=== PATIENT | female | born 1960 | race Caucasian/White ===

== ENCOUNTER → 2017-02-07 | Outpatient (CLI) | payer BC ==
[~2017-02-07] MED LIST: ADAL40KI SQ; CIPR1TAB10 PO; CYAN10002 IM; CYAN10004 IM; HYDR-3714 PO; HYDR-3983 PO; HYDR-4380 PO; HYDR-5688 PO; LANS30TA3 PO; LEVO1TAB33 PO; LIDO1PAD2 TD; LIDO5DIS10 TD; PHEN-876 PO; PRED10TA PO; TOFA1TAB PO
== END | disposition home or self-care (01) ==
LOC: C.LABPVFM 14:39
PROVIDERS: ATTEND Family Medicine
DX: R10.2 Pelvic and perineal pain (principal)

== ENCOUNTER 2017-02-08 09:42 | Emergency (ER) | payer BC ==
[~2017-02-08] VITALS: Ht 162.6 cm; Wt 68.9 kg
[~2017-02-08 09:42] MED LIST changes: -CIPR1TAB10 PO; -CYAN10004 IM; -HYDR-3714 PO; -HYDR-4380 PO; -HYDR-5688 PO; -LEVO1TAB33 PO; -LIDO1PAD2 TD; -PHEN-876 PO; -PRED10TA PO; -TOFA1TAB PO
[2017-02-08 09:46] VITALS: TEMP 36.6; Ht 162.6 cm; Wt 68.9 kg
[2017-02-08] MEDS ORDERED: TOFA1TAB PO (10:50)
[2017-02-08] MEDS ORDERED: PRED10TA PO (10:50)
[2017-02-08] MEDS ORDERED: LIDO1PAD2 TD (10:50)
[2017-02-08] MEDS ORDERED: LEVO1TAB33 PO (10:50)
[2017-02-08] MEDS ORDERED: HYDR-4380 PO (10:50)
[2017-02-08] MEDS ORDERED: CYAN10004 IM (10:52)
[2017-02-08] MEDS ORDERED: MoRPHine SULFATE 4 MG/ML 1 ML CARP\\VIAL IV STA (11:11)
[2017-02-08] MEDS ORDERED: SODIUM CHLORIDE 0.9% 1000ML 1,000 ML IV STA (11:11)
[2017-02-08] MEDS ORDERED: ONDANSETRON INJ 2 MG/ML 2 ML VIAL IV STA (11:11)
[2017-02-08 11:20] LABS: BASO % 0.5 %; BASO ABS # 0.03 K/uL (0-0.2); COMPLETE YES; EOS % 2.5 %; HEMATOCRIT 42.1 % (37-47); LYMPH % 32.2 %; LYMPH ABS # 1.83 K/uL (1.2-3.4); MEAN CELL VOLUME 87.7 fL (80-100); MEAN CORPUSCULAR HEMOGLOBIN 29.6 pg (25-34); MEAN CORPUSCULAR HGB CONC 33.7 g/dl (32-36); MEAN PLATELET VOLUME 11.8 fL (7.4-10.4); NEUT % 52.8 %; PLATELET COUNT 240 K/uL (130-400); WHITE BLOOD COUNT 5.69 K/uL (4.8-10.8)
[2017-02-08 11:26] LABS: URINE APPEARANCE CLEAR (CLEAR); URINE BILIRUBIN NEG (NEG); URINE COLOR YELLOW; URINE NITRITE NEG (NEG); URINE SPECIFIC GRAVITY 1.021 (1.000-1.030); UROBILINOGEN NEG (NEG); ZZUR CULT IF INDIC CLEAN CATCH NO
[2017-02-08 11:28] LABS: BUN/CREATININE RATIO 16.6 (10-20); CALCIUM 9.1 mg/dl (8.5-10.1); CREATININE 0.7 mg/dl (0.60-1.20); POTASSIUM 3.7 mmol/L (3.5-5.1)
[2017-02-08 11:28] LABS: MANUAL MICROSCOPIC REQUIRED? NO; REVIEW REQ? NO
[2017-02-08] MEDS ORDERED: OPTIRAY 320 IV PRN (11:30)
[2017-02-08 11:31] LABS: ALB/GLOB RATIO 0.7 (0.9-2)
--- NOTE | 2017-02-08 12:03 | EMERGENCY ROOM VISIT NOTE ---
History First contact with patient: 10:58 Chief Complaint: ABDOMINAL PAIN Stated Complaint: ABDOMINAL PAIN, BACK PAIN Nursing Triage Summary: pt has hx of gastic bipass several years ago, pt has chronic constant diarrhea which is normal for pt pt has had lower abd pain for greater than week, pain radiates into right flank no hx kidney stones pt saw pcp yesterday urine dipped positive for leukocytes pt started on Levaquin pt was instructed to go to ER yesterday for r/o appey, "wanted to see if it gets worse" today pain worse, pt unable to sit up diarrhea, nausea History of Present Illness The patient is a 56 year old female who presents to the Emergency Room with complaints of abdominal pain for the past one week. The patient reports that last week she had minimal discomfort which has progressively worsened over the past 3 days. The patient reports that the pain is in the right lower abdomen and around the umbilicus. She was seen at her primary care provider's office yesterday and states that she was started on Levaquin for a possible urinary tract infection. She does report that they suggested she come to the ER to rule out appendicitis at that time. The patient reports that she did vomit one time 3 days ago and has been nauseous after eating. Her bowel movements have been normal. She has a history of gastric bypass 9 years ago and had surgery one year ago to repair an ulcer. The patient also reports a history of a total hysterectomy, anemia and rheumatoid arthritis. She denies any urinary symptoms , chest pain, shortness of breath, vaginal bleeding, melena or hematochezia. She denies any fevers or chills. Review of Systems A complete 10-point Review of Systems was discussed with the patient, with pertinent positives and negatives listed in the History of Present Illness. All remaining Review of Systems questions can be considered negative unless otherwise specified. Past Medical/Surgical History Medical Problems: (1) Anemia (2) Anemia (3) section (4) Dizziness (5) Dizziness (6) Gastric bypass (7) GI bleed (8) Hematemesis (9) Hypothyroidism (10) Hysterectomy (11) Rheumatoid arthritis (12) Syncope and collapse (13) Tubal ligation (14) Upper GI bleed Social History Smoking Status: Never Smoker Alcohol Use: none Drug Use: none Marital Status: Occupation Status: employed Current/Historical Medications Scheduled Cyanocobalamin (Vitamin B-12 1000 Mcg), 1,000 MCG IM Q3 MONTHS Hydrocodone-Acetaminophen (Hydrocodone/Acetaminophen), 1 TAB PO Q8 Lansoprazole (Prevacid Solutab), 30 MG PO DAILY Levofloxacin (Levaquin), 1 TAB PO DAILY Prednisone (Prednisone), 1 TAB PO DAILY Tofacitinib Citrate (Xeljanz), 1 TAB PO BID Scheduled PRN Hydrocodone/Acetaminophen 5MG/325MG (Otho 5MG/325MG), 1-2 TABLET PO Q4H PRN for Pain Lidocaine (Lidocaine), 1 PATCH TD for Pain Allergies Coded Allergies: Oxycodone (Verified Adverse Reaction, Mild, "CRAWLING SKIN", 02/08/17) DID NOT LIKE HOW SHE FELT Physical Exam Vital Signs Date Time Temp Pulse Resp B/P Pulse Ox O2 Delivery O2 Flow Rate FiO2 02/08/17 13:20 76 18 126/84 98 02/08/17 09:46 36.6 74 18 132/91 100 Room Air Physical Exam VITALS: Vitals are noted on the nurse's note and reviewed by myself. Vital signs stable. GENERAL: This is a 56-year-old female, in no acute distress, nondiaphoretic, well-developed well-nourished. SKIN: Capillary reflex less than 2 seconds. HEENT: Normocephalic. PERRLA. EOMI. Nares patent. Mucous membranes moist. Neck is supple without nuchal rigidity. HEART: Regular rate and rhythm without murmurs gallops or rubs. LUNGS: Clear to auscultation bilaterally without wheezes, rales or rhonchi. ABDOMEN: Positive bowel sounds x 4. Soft, moderate tenderness to palpation over the right lower quadrant and suprapubic region. No guarding or rebound tenderness. NEURO: Patient was alert and oriented to person place and time. Medical Decision & Procedures ER Provider Diagnostic Interpretation: CT ABD/PELVIS IV CONTRAST ONLY CLINICAL HISTORY: periumbilical pain, vomiting, hx gastric bypass COMPARISON STUDY: 08/30/2011 TECHNIQUE: Following the IV administration of 93 mL of Optiray-320, CT scan of the abdomen and pelvis was performed from the lung bases to the proximal femurs. Images are reviewed in the axial, sagittal, and coronal planes. IV contrast was administered without complication. CT DOSE: 658.22 mGycm FINDINGS: Lower chest: Is a 12 mm right middle lobe lung cyst. There are bibasal atelectatic changes. Liver: The contrast-enhanced liver is normal in size, contour, and attenuation. There is no intrahepatic biliary ductal dilatation. The hepatic veins and portal veins are patent. Gallbladder: There is mild gallbladder distention. No calculi are visualized. There is no ductal dilatation. The portal veins are patent. Spleen: Normal in size and attenuation. Pancreas: There is persistent mild pancreatic ductal dilatation (3.8 mm) Adrenal glands: Unremarkable. Kidneys: There is a nonobstructing 4 mm lower pole right renal calculus. No solid renal masses are visualized. Bowel: There are postsurgical changes of a prior gastric bypass. There are no transition zones indicate bowel obstruction. The appendix is felt to be normal. There is mild fecal retention. There is no evidence of acute diverticulitis. Peritoneum: There is no intraperitoneal free air or abdominal ascites. Vasculature: The abdominal aorta is normal in course and caliber. Adenopathy: None. Pelvic viscera: The patient appears status post a prior hysterectomy. Skeletal structures: 1. 4 mm nonobstructing lower pole right renal calculus 2. Postsurgical changes of a prior gastric bypass 3. No evidence of bowel obstruction. No evidence of free air 4. Normal appendix 5. Mild fecal retention 6. Mild pancreatic ductal dilatation. IMPRESSION: Normal Study Laboratory Results 02/08/17 10:00 Red Blood Count 4.80, Mean Corpuscular Volume 87.7, Mean Corpuscular Hemoglobin 29.6, Mean Corpuscular Hemoglobin Concent 33.7, Mean Platelet Volume 11.8, Neutrophils (%) (Auto) 52.8, Lymphocytes (%) (Auto) 32.2, Monocytes (%) (Auto) 12.0, Eosinophils (%) (Auto) 2.5, Basophils (%) (Auto) 0.5, Neutrophils # (Auto ) 3.01, Lymphocytes # (Auto) 1.83, Monocytes # (Auto) 0.68, Eosinophils # (Auto ) 0.14, Basophils # (Auto) 0.03 02/08/17 10:00 Test 02/08/17 00:00 02/08/17 10:00 Urine Color YELLOW Urine Appearance CLEAR (CLEAR) Urine pH 5.0 (4.5-7.5) Urine Specific [place] 1.021 (1.000-1.030) Urine Protein NEG (NEG) Urine Glucose (UA) NEG (NEG) Urine Ketones NEG (NEG) Urine Occult Blood NEG (NEG) Urine Nitrite NEG (NEG) Urine Bilirubin NEG (NEG) Urine Urobilinogen NEG (NEG) Urine Leukocyte Esterase NEG (NEG) White Blood Count 5.69 K/uL (4.8-10.8) Red Blood Count 4.80 M/uL (4.2-5.4) Hemoglobin 14.2 g/dL (12.0-16.0) Hematocrit 42.1 % (37-47) Mean Corpuscular Volume 87.7 fL (80-100) Mean Corpuscular Hemoglobin 29.6 pg (25-34) Mean Corpuscular Hemoglobin Concent 33.7 g/dl (32-36) Platelet Count 240 K/uL (130-400) Mean Platelet Volume 11.8 fL (7.4-10.4) Neutrophils (%) (Auto) 52.8 % Lymphocytes (%) (Auto) 32.2 % Monocytes (%) (Auto) 12.0 % Eosinophils (%) (Auto) 2.5 % Basophils (%) (Auto) 0.5 % Neutrophils # (Auto) 3.01 K/uL (1.4-6.5) Lymphocytes # (Auto) 1.83 K/uL (1.2-3.4) Monocytes # (Auto) 0.68 K/uL (0.11-0.59) Eosinophils # (Auto) 0.14 K/uL (0-0.5) Basophils # (Auto) 0.03 K/uL (0-0.2) RDW Standard Deviation 44.3 fL (36.4-46.3) RDW Coefficient of Variation 13.7 % (11.5-14.5) Immature Granulocyte % (Auto) 0.0 % Immature Granulocyte # (Auto) 0.00 K/uL (0.00-0.02) Anion Gap 7.0 mmol/L (3-11) Est Creatinine Clear Calc Drug Dose 87.6 ml/min Estimated GFR () 113.8 Estimated GFR (Non- 98.2 BUN/Creatinine Ratio 16.6 (10-20) Calcium Level 9.1 mg/dl (8.5-10.1) Total Bilirubin 0.4 mg/dl (0.2-1) Aspartate Amino Transf (AST/SGOT) 19 U/L (15-37) Alanine Aminotransferase (ALT/SGPT) 28 U/L (12-78) Alkaline Phosphatase 102 U/L (45-117) Total Protein 7.6 gm/dl (6.4-8.2) Albumin 3.2 gm/dl (3.4-5.0) Globulin 4.4 gm/dl (2.5-4.0) Albumin/Globulin Ratio 0.7 (0.9-2) Lipase 214 U/L (73-393) Medications Administered Medications (Trade) Dose Ordered Sig/Jorden Route Start Time Stop Time Status Last Admin Dose Admin Sodium Chloride (Nss 1000ml) 1,000 ml @ 999 mls/hr Q1H1M STAT IV 02/08/17 11:11 02/08/17 12:11 DC 02/08/17 11:11 999 MLS/HR Morphine Sulfate (MoRPHine SULFATE INJ) 4 mg NOW STAT IV 02/08/17 11:11 02/08/17 11:13 DC 02/08/17 11:24 4 MG Ondansetron HCl (Zofran Inj) 4 mg NOW STAT IV 02/08/17 11:11 02/08/17 11:13 DC 02/08/17 11:24 4 MG Medical Decision Differential diagnosis includes appendicitis, colitis, gastroenteritis, diverticulitis, pancreatitis, ovarian cyst, ovarian torsion, uterine fibroid, among others. The patient was evaluated as above. Labs were drawn and IV access was obtained. Imaging studies were performed and read by radiology as above. The patient was medicated with 4 mg morphine, 4 mg Zofran and 1 L normal saline solution. The patient was reassessed multiple times during their stay in the emergency department and remained in stable condition. The patient is a 56-year-old female who presents today complaining of mid abdominal pain. Labs revealed no leukocytosis, anemia or concerning electrolyte abnormalities. Lipase was not elevated. Urinalysis was not suggestive of infection. CT of the abdomen and pelvis was performed and showed no acute findings within the abdomen. There was note of mild fecal retention. The patient was informed that this may be contributing to her pain and I did encourage her to use MiraLAX for pain. She did request something for pain and was given a short course of Otho, but I did warn her that this could worsen her constipation. The patient was instructed to follow up with both her primary care provider and her gastric bypass surgeon. She should return here for any worsening of her current condition or new/concerning symptoms. Based on the patient's presentation, lab results, and imaging studies, I feel the patient is stable for outpatient treatment. The patient's case was reviewed with Dr. Nichole, ED attending physician, who agreed with my assessment and treatment plan. Discharge instructions were reviewed with the patient. The patient verbalized understanding of my assessment and treatment plan and was discharged home in good condition. [place] Drug Monitoring Program Search Results: patient reviewed within database Impression Primary Impression: Periumbilical abdominal pain Departure Information Dispostion Home / Self-Care Condition GOOD Prescriptions Hydrocodone/Acetaminophen 5MG/325MG (Otho 5MG/325MG) Tab 1-2 TABLET PO Q4H Y for Pain, #10 TAB For Initial Treatment Prov: Grace Reese .MICH 02/08/17 Referrals Maren Snowden C.R.N.P (PCP) Patient Instructions My [facility] Additional Instructions You have been treated in the Emergency Department for your Abdominal Pain. Laboratory results and imaging studies have ruled out any emergent causes for your abdominal pain which would warrant admission or surgery. Stop taking the Levaquin. You have been prescribed Otho to be used for pain control. This is a narcotic medication. You cannot drive or consume alcohol while on this medicine. This medicine should only be used for pain that cannot be controlled with over-the- counter pain medicines. Take MiraLAX tonight. This is an hlja-ypk-abtftfr medication which will help constipation. Take Colace while you're taking the narcotic pain medication. For pain control, you can use the following [id number] medicines (if >12 yo): - Regular strength (325mg/tab) Tylenol (acetaminophen) 2 tabs every 4-6 hours as needed. Do not exceed 12 tablets in a 24 hour period. Avoid taking more than 4 grams (4000 mg) of Tylenol per day. This includes any other sources of acetaminophen you may take on a regular basis. - Regular strength (200 mg/tab) Advil (ibuprofen) 1-2 tabs every 4-6 hours as needed. Do not exceed a dose of 3200 mg per day. Drink plenty of water and stay well hydrated. Follow-up with your primary care provider within 48 hours. You should also call your gastric bypass surgeon and schedule follow-up with them. Return to the emergency department if your symptoms persist despite treatment plan outlined above or if the following symptoms occur: Worsening pain, worsening vomiting, fevers or any other new/concerning symptoms.
--- NOTE | 2017-02-08 12:12 | DIAGNOSTIC IMAGING REPORT ---
CT ABD/PELVIS IV CONTRAST ONLY CLINICAL HISTORY: periumbilical pain, vomiting, hx gastric bypass COMPARISON STUDY: 08/30/2011 TECHNIQUE: Following the IV administration of 93 mL of Optiray-320, CT scan of the abdomen and pelvis was performed from the lung bases to the proximal femurs. Images are reviewed in the axial, sagittal, and coronal planes. IV contrast was administered without complication. CT DOSE: 658.22 mGycm FINDINGS: Lower chest: Is a 12 mm right middle lobe lung cyst. There are bibasal atelectatic changes. Liver: The contrast-enhanced liver is normal in size, contour, and attenuation. There is no intrahepatic biliary ductal dilatation. The hepatic veins and portal veins are patent. Gallbladder: There is mild gallbladder distention. No calculi are visualized. There is no ductal dilatation. The portal veins are patent. Spleen: Normal in size and attenuation. Pancreas: There is persistent mild pancreatic ductal dilatation (3.8 mm) Adrenal glands: Unremarkable. Kidneys: There is a nonobstructing 4 mm lower pole right renal calculus. No solid renal masses are visualized. Bowel: There are postsurgical changes of a prior gastric bypass. There are no transition zones indicate bowel obstruction. The appendix is felt to be normal. There is mild fecal retention. There is no evidence of acute diverticulitis. Peritoneum: There is no intraperitoneal free air or abdominal ascites. Vasculature: The abdominal aorta is normal in course and caliber. Adenopathy: None. Pelvic viscera: The patient appears status post a prior hysterectomy. Skeletal structures: 1. 4 mm nonobstructing lower pole right renal calculus 2. Postsurgical changes of a prior gastric bypass 3. No evidence of bowel obstruction. No evidence of free air 4. Normal appendix 5. Mild fecal retention 6. Mild pancreatic ductal dilatation. IMPRESSION: Normal Study Electronically signed by: Joseph Rahman M.D. 02/08/2017 12:10 PM Dictated Date/Time: 02/08/2017 12:04 PM
[2017-02-08] MEDS ORDERED: HYDR-5688 PO (13:07)
[2017-02-08 13:20] VITALS: BP 126/84; PULSE 76; O2SAT 98
== END 2017-02-08 13:22 | disposition home or self-care (01) ==
LOC: C.EDB 09:44 → C.EDC 13:22
DX: R10.33 Periumbilical pain (principal); Z98.84 Bariatric surgery status; E03.9 Hypothyroidism, unspecified

== ENCOUNTER 2017-05-11 04:32 | Emergency (ER) | payer BC ==
[~2017-05-11] VITALS: Ht 162.6 cm; Wt 70.6 kg
[~2017-05-11 04:32] MED LIST changes: -ADAL40KI SQ; -CYAN10002 IM; +CYAN10004 IM; -HYDR-3983 PO; +HYDR-4380 PO; +HYDR-5688 PO; +LEVO1TAB33 PO; +LIDO1PAD2 TD; -LIDO5DIS10 TD; +PRED10TA PO; +TOFA1TAB PO
[2017-05-11 04:39] VITALS: TEMP 36.5; Ht 162.6 cm; Wt 70.6 kg
[2017-05-11] MEDS ORDERED: ONDANSETRON INJ 2 MG/ML 2 ML VIAL IV STA (04:48)
[2017-05-11] MEDS ORDERED: MoRPHine SULFATE 4 MG/ML 1 ML CARP\\VIAL IV STA (04:48)
[2017-05-11] MEDS ORDERED: SODIUM CHLORIDE 0.9% 500ML 500 ML IV STA (04:48)
[2017-05-11] MEDS ORDERED: PHENAZOPYRIDINE HCL 200 MG TAB PO STA (04:48)
[2017-05-11] MEDS ORDERED: SODIUM CHLORIDE 0.9% 1000ML 1,000 ML IV STA (04:48)
[2017-05-11] MEDS ORDERED: CEFTRIAXONE SOD INJ 1 GM ADDVIAL IV STA (04:48)
[2017-05-11 05:26] LABS: BASO % 0.6 %; BASO ABS # 0.03 K/uL (0-0.2); COMPLETE YES; EOS % 2.2 %; HEMATOCRIT 41.7 % (37-47); IG% 0.2 %; LYMPH % 38.7 %; LYMPH ABS # 1.98 K/uL (1.2-3.4); MEAN CELL VOLUME 86.9 fL (80-100); MEAN CORPUSCULAR HEMOGLOBIN 28.8 pg (25-34); MEAN CORPUSCULAR HGB CONC 33.1 g/dl (32-36); MEAN PLATELET VOLUME 11.6 fL (7.4-10.4); MONO % 11.4 %; NEUT % 46.9 %; PLATELET COUNT 201 K/uL (130-400); WHITE BLOOD COUNT 5.11 K/uL (4.8-10.8)
[2017-05-11] MEDS ORDERED: HYDR-3714 PO (05:41)
[2017-05-11 05:43] LABS: BUN/CREATININE RATIO 26.4 (10-20); CREATININE 0.65 mg/dl (0.60-1.20)
[2017-05-11 05:44] LABS: CALCIUM 8.5 mg/dl (8.5-10.1)
[2017-05-11 05:51] LABS: URINE BILIRUBIN NEG (NEG); URINE EPITHELIAL CELL AUTO 20-30 /lpf (0-5); URINE NITRITE NEG (NEG); URINE PH 6.5 (4.5-7.5); URINE SPECIFIC GRAVITY 1.029 (1.000-1.030); UROBILINOGEN NEG (NEG); ZZUR CULT IF INDIC CLEAN CATCH NO
[2017-05-11 05:52] LABS: MANUAL MICROSCOPIC REQUIRED? NO; REVIEW REQ? NO; URINE APPEARANCE TURBID (CLEAR); URINE COLOR RED
--- NOTE | 2017-05-11 07:08 | DIAGNOSTIC IMAGING REPORT ---
RENAL ULTRASOUND HISTORY: flank pain, ? infx COMPARISON: Abdomen and pelvis CT 02/08/2017. FINDINGS: Right kidney: 11.2 cm. No hydronephrosis. Normal corticomedullary differentiation and cortical thickness. An 8 mm stone within the interpolar region. Left kidney: 12.1 cm. No hydronephrosis. Normal corticomedullary differentiation and cortical thickness. Bladder: No bladder wall thickening. The bilateral ureteral jets were identified. Trace debris layering within the bladder. IMPRESSION: 1. Right-sided nephrolithiasis. 2. No hydronephrosis. 3. Trace debris layering within the bladder. Recommend correlation with urinalysis. Electronically signed by: Tani Corcoran M.D. 05/11/2017 7:06 AM Dictated Date/Time: 05/11/2017 7:04 AM
--- NOTE | 2017-05-11 07:11 | EMERGENCY ROOM VISIT NOTE ---
History First contact with patient: 04:46 Chief Complaint: HEMATURIA Stated Complaint: PEEING BLOOD History of Present Illness The patient is a 56 year old female who presents to the Emergency Room with complaints of urinary symptoms with suprapubic discomfort for the past 2 days. Patient saw her family care doctor was started on Cipro. Symptoms have not gotten any better. Patient denies fevers, flank pain, chest pain, dyspnea, cough, congestion. She is tolerate by mouth fluids and food. Review of Systems See HPI for pertinent positives & negatives. A total of 10 systems reviewed and were otherwise negative. Past Medical/Surgical History Medical Problems: (1) Anemia (2) Anemia (3) section (4) Dizziness (5) Dizziness (6) Gastric bypass (7) GI bleed (8) Hematemesis (9) Hypothyroidism (10) Hysterectomy (11) Rheumatoid arthritis (12) Syncope and collapse (13) Tubal ligation (14) Upper GI bleed Social History Smoking Status: Never Smoker Alcohol Use: none Drug Use: none Marital Status: Occupation Status: employed Current/Historical Medications Scheduled Cyanocobalamin (Vitamin B-12 1000 Mcg), 1,000 MCG IM Q3 MONTHS Tofacitinib Citrate (Xeljanz), 10 MG PO DAILY Scheduled PRN Hydrocodon/Acetaminophen 7.5MG/300MG (Vicodin Es (7.5MG/300MG)), 1 TAB PO QID PRN for Pain Allergies Coded Allergies: Oxycodone (Verified Adverse Reaction, Mild, "CRAWLING SKIN", 05/11/17) DID NOT LIKE HOW SHE FELT Physical Exam Vital Signs Date Time Temp Pulse Resp B/P (MAP) Pulse Ox O2 Delivery O2 Flow Rate FiO2 05/11/17 04:39 36.5 54 18 137/86 96 Room Air Physical Exam VITALS: Vitals are noted on the nurse's note and reviewed by myself. Vital signs stable. GENERAL: Pleasant female, in no acute distress, nondiaphoretic, well-developed well-nourished. SKIN: The skin was without rashes, erythema, edema, or bruising. There is no tenting of the skin. Capillary reflex less than 2 seconds. HEAD: Normocephalic atraumatic. EARS: External auditory canals clear, tympanic membranes pearly berry without erythema or effusion bilaterally. EYES: Pupils equal round and reactive to light and accommodation. Conjunctivae without injection, sclerae without icterus. Extraocular movements intact. NOSE: Patent, turbinates without inflammation or discharge. MOUTH: Mucous membranes moist. Pharynx without erythema or exudate. Uvula midline. Airway patent. Tongue does not deviate. NECK: Supple without nuchal rigidity. No lymphadenopathy. No thyromegaly. Cervical spine is nontender. No JVD. HEART: Regular rate and rhythm without murmurs gallops or rubs. LUNGS: Clear to auscultation bilaterally without wheezes, rales or rhonchi. No dullness to percussion. No retractions or accessory muscle use. ABDOMEN: Positive bowel sounds x 4. Normal tympanic percussion. Soft, minimally tender to palpation suprapubic area, no CVA tenderness, without masses or organomegaly. Holland sign negative. No guarding or rebound tenderness. MUSCULOSKELETAL: No muscle atrophy, erythema, or edema noted. NEURO: Patient was alert and oriented to person place and time. Normal sensation to light and sharp touch. No focal neurological deficits. Medical Decision & Procedures Laboratory Results 05/11/17 05:05 Red Blood Count 4.80, Mean Corpuscular Volume 86.9, Mean Corpuscular Hemoglobin 28.8, Mean Corpuscular Hemoglobin Concent 33.1, Mean Platelet Volume 11.6, Neutrophils (%) (Auto) 46.9, Lymphocytes (%) (Auto) 38.7, Monocytes (%) (Auto) 11.4, Eosinophils (%) (Auto) 2.2, Basophils (%) (Auto) 0.6, Neutrophils # (Auto ) 2.40, Lymphocytes # (Auto) 1.98, Monocytes # (Auto) 0.58, Eosinophils # (Auto ) 0.11, Basophils # (Auto) 0.03 05/11/17 05:05 Test 05/11/17 00:00 05/11/17 05:05 Urine Color RED Urine Appearance TURBID (CLEAR) Urine pH 6.5 (4.5-7.5) Urine Specific [place] 1.029 (1.000-1.030) Urine Protein 1+ (NEG) Urine Glucose (UA) NEG (NEG) Urine Ketones NEG (NEG) Urine Occult Blood 3+ (NEG) Urine Nitrite NEG (NEG) Urine Bilirubin NEG (NEG) Urine Urobilinogen NEG (NEG) Urine Leukocyte Esterase NEG (NEG) Urine WBC (Auto) 5-10 /hpf (0-5) Urine RBC (Auto) >30 /hpf (0-4) Urine Hyaline Casts (Auto) 1-5 /lpf (0-5) Urine Epithelial Cells (Auto) 20-30 /lpf (0-5) Urine Bacteria (Auto) NEG (NEG) White Blood Count 5.11 K/uL (4.8-10.8) Red Blood Count 4.80 M/uL (4.2-5.4) Hemoglobin 13.8 g/dL (12.0-16.0) Hematocrit 41.7 % (37-47) Mean Corpuscular Volume 86.9 fL (80-100) Mean Corpuscular Hemoglobin 28.8 pg (25-34) Mean Corpuscular Hemoglobin Concent 33.1 g/dl (32-36) Platelet Count 201 K/uL (130-400) Mean Platelet Volume 11.6 fL (7.4-10.4) Neutrophils (%) (Auto) 46.9 % Lymphocytes (%) (Auto) 38.7 % Monocytes (%) (Auto) 11.4 % Eosinophils (%) (Auto) 2.2 % Basophils (%) (Auto) 0.6 % Neutrophils # (Auto) 2.40 K/uL (1.4-6.5) Lymphocytes # (Auto) 1.98 K/uL (1.2-3.4) Monocytes # (Auto) 0.58 K/uL (0.11-0.59) Eosinophils # (Auto) 0.11 K/uL (0-0.5) Basophils # (Auto) 0.03 K/uL (0-0.2) RDW Standard Deviation 43.3 fL (36.4-46.3) RDW Coefficient of Variation 13.6 % (11.5-14.5) Immature Granulocyte % (Auto) 0.2 % Immature Granulocyte # (Auto) 0.01 K/uL (0.00-0.02) Anion Gap 6.0 mmol/L (3-11) Est Creatinine Clear Calc Drug Dose 95.4 ml/min Estimated GFR () 116.7 Estimated GFR (Non- 100.7 BUN/Creatinine Ratio 26.4 (10-20) Calcium Level 8.5 mg/dl (8.5-10.1) Total Bilirubin 0.5 mg/dl (0.2-1) Direct Bilirubin 0.1 mg/dl (0-0.2) Aspartate Amino Transf (AST/SGOT) 17 U/L (15-37) Alanine Aminotransferase (ALT/SGPT) 27 U/L (12-78) Alkaline Phosphatase 94 U/L (45-117) Total Protein 7.1 gm/dl (6.4-8.2) Albumin 3.5 gm/dl (3.4-5.0) Medications Administered Medications (Trade) Dose Ordered Sig/Jorden Route Start Time Stop Time Status Last Admin Dose Admin Sodium Chloride 500 ml @ 999 mls/hr Q31M STAT IV 05/11/17 04:48 05/11/17 05:18 DC 05/11/17 05:18 999 MLS/HR Sodium Chloride 1,000 ml @ 125 mls/hr Q8H STAT IV 05/11/17 04:48 05/11/17 12:47 05/11/17 05:18 125 MLS/HR Phenazopyridine HCl (Pyridium Tab) 200 mg NOW STAT PO 05/11/17 04:48 05/11/17 04:51 DC 05/11/17 05:17 200 MG Ceftriaxone Sodium (Rocephin Inj) 1 gm NOW STAT IV 05/11/17 04:48 05/11/17 04:51 DC 05/11/17 05:17 1 GM Morphine Sulfate (MoRPHine SULFATE INJ) 4 mg NOW STAT IV 05/11/17 04:48 05/11/17 04:51 DC 05/11/17 05:18 4 MG Ondansetron HCl (Zofran Inj) 4 mg NOW STAT IV 05/11/17 04:48 05/11/17 04:51 DC 05/11/17 05:17 4 MG ED Course Prior records/ancillary studies reviewed. Triage Nursing notes reviewed. The patient's history was concerning for urinary symptoms with abdominal pain. Differential diagnosis: Etiologies such as appendicitis, diverticulitis, PUD, biliary pathology, UTI, pancreatitis, obstruction, mesenteric ischemia, aortic pathology, infections, inflammatory bowel disease, renal colic, as well as others were entertained. Physical examination findings: As above. ER treatment provided: Rocephin, Pyridium, IV fluids On reassessment the patient felt better. Diagnostics interpreted by me: The labs revealed no worrisome leukocytosis. Stable H&H. Urine with hematuria with possible infections and for culture Imaging studies: RENAL ULTRASOUND HISTORY: flank pain, ? infx COMPARISON: Abdomen and pelvis CT 02/08/2017. FINDINGS: Right kidney: 11.2 cm. No hydronephrosis. Normal corticomedullary differentiation and cortical thickness. An 8 mm stone within the interpolar region. Left kidney: 12.1 cm. No hydronephrosis. Normal corticomedullary differentiation and cortical thickness. Bladder: No bladder wall thickening. The bilateral ureteral jets were identified. Trace debris layering within the bladder. IMPRESSION: 1. Right-sided nephrolithiasis. 2. No hydronephrosis. 3. Trace debris layering within the bladder. Recommend correlation with urinalysis. Exam and history seem consistent with hematuria possible UTI. Patient is well- appearing. She did not have acute abdomen on exam. She is advised to take medications as directed and to follow-up family care tomorrow here in the ER sooner for fevers, vomiting, back pain, worsening signs or symptoms or as needed. By the evaluation outlined above emergent etiologies such as appendicitis, diverticulitis, PUD, biliary pathology, pancreatitis, obstruction, mesenteric ischemia, aortic pathology, infections, inflammatory bowel disease, renal colic , as well as others were deemed relatively unlikely. The pt informed about the findings as listed above. All questions were answered and pleased with the treatment. Return instructions were outlined and the patient was discharged in stable condition. Outpatient prescription management: [] Referral: The patient was referred back to their primary care physician for follow-up in 2 to 3 days for a recheck of the current condition. Case reviewed by attending. Medical Decision As above Impression Primary Impression: UTI (urinary tract infection) Additional Impression: Hematuria Departure Information Dispostion Home / Self-Care Condition GOOD Referrals Maren Snowden, C.R.N.P (PCP) Patient Instructions My [facility] Additional Instructions DO NOT drive, drink alcohol, operate machinery, or perform dangerous activities today. You were given medications in the ER that can affect your ability to safely function or operate a vehicle. Continue your Ciprofloxacin(Cipro) 500mg: Take one pill twice daily for 7 days for your urine infection. All antibiotics can cause diarrhea. If this occurs and you feel worse or it does not resolve in 1-2 days follow up with your doctor or return to the Emergency Department as this could be signs of serious underlying problems. If you experience any pain in your tendons or any tendon injury return to the ER for re-evaluation. Any medication can cause an allergic reaction, stop the pills immediately and return to the ER for rash, hives, breathing difficulties, or swelling. Pyridium 200mg: Take one pill three times daily as needed for urinary discomfort. This medication will turn your urine orange. This is normal and nothing to be concerned about. Zofran 4 mg: Take one every six hours as needed for nausea. Avoid alcohol, operating machinery or dangerous equipment, working on ladders or roofs, DRIVING , or situations where being under the influence may be dangerous. Acetaminophen(Tylenol) may be used for fever or pain. Use 1000mg every six hours as needed. Avoid using more than 3000mg in a 24 hour period. Rest and drink plenty of fluids as tolerated. Slow sips of water or sports drinks are recommended instead of large amounts all at once. Continue current medications. Once your stomach is settled start with a clear liquid diet (jello, soup broth, etc.) and then advance as tolerated. You should avoid full, heavy meals for about 24 hrs from the time your symptoms resolved. Return to the ER immediately for worsening or persistent abdominal/back pain, vomiting, fevers, worsening of your condition, or as needed. Follow up with your primary physician within 2-3 days for a recheck of the current condition. Problem Qualifiers Primary Impression: UTI (urinary tract infection) Urinary tract infection type: acute cystitis Hematuria presence: with hematuria Qualified Codes: N30.01 - Acute cystitis with hematuria
[2017-05-11] MEDS ORDERED: CIPR1TAB10 PO (07:12)
[2017-05-11] MEDS ORDERED: PHEN-876 PO (07:12)
[2017-05-11] MEDS ORDERED: ONDANSETRON HOME PACK 4MG OD TAB PO ONE (07:15)
[2017-05-11 07:23] VITALS: BP 108/69; PULSE 52; O2SAT 97
== END 2017-05-11 07:29 | disposition home or self-care (01) ==
LOC: C.EDB 04:33
DX: N39.0 Urinary tract infection, site not specified (principal); Z98.84 Bariatric surgery status; E03.9 Hypothyroidism, unspecified; Z90.710 Acquired absence of both cervix and uterus; M06.9 Rheumatoid arthritis, unspecified; Z98.51 Tubal ligation status; Z79.899 Other long term (current) drug therapy

== ENCOUNTER 2022-06-13 17:30 | Inpatient (IN) ==
[2022-06-13] MEDS ORDERED: ACETAMINOPHEN 1,000 MG/100 ML VIAL IV STA (17:52)
[2022-06-13] MEDS ORDERED: methylPREDNISolone 125 MG/2 ML VIAL IV STA (17:52)
[2022-06-13] MEDS ORDERED: KETOROLAC TROMETHAMINE 15 MG/ML VIAL IV STA (17:52)
[2022-06-13] MEDS ORDERED: SODIUM CHLORIDE 0.9% 1000ML 1,000 ML IV SCH ×2 (18:00→19:00)
[2022-06-13 18:12] LABS: Mean Corpuscular Hgb Conc 33.3 g/dL (32.0-36.0); Mean Corpuscular Volume 80.9 fL (80.0-100.0); Platelet Count 191 K/uL (130-400); RDW Coefficient of Variation 16.7 % (11.5-14.5); RDW Standard Deviation 48.7 fL (36.4-46.3); Red Blood Count 4.45 M/uL (3.93-5.22); White Blood Count 2.46 K/ul (4.8-10.8)
--- NOTE | 2022-06-13 18:15 | Emergency Department Note ---
Impression & Plan Neutropenia, Left knee pain, Left shoulder pain, Diarrhea, Rheumatoid arthritis, seropositive, Hypomagnesemia, Hypokalemia, Hypophosphatemia ED Provider Note NAME: HUMPHREY RODRIGUEZ AGE: 61 SEX: F ARRIVES VIA: Ambulance INFORMANT: Patient ED PROVIDER(S): Clem Casas MD CHIEF COMPLAINT: Left knee and shoulder pain PLAN: Disposition: Admit MEDICAL DECISION MAKING: The patient is a pleasant 61-year-old woman with a past medical history of rheum atoid arthritis, migraine headaches who presents to the emergency department for evaluation of worsening left knee pain and swelling as well as left shoulder pain that has developed over the past 48 hours. 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 They did do a COVID-19 test at work and this was negative. She reports since then she has slept the rest of the day and has not had much to eat or drink. She denies any fevers, cough, congestion, nausea or vomiting. She reports she did have diarrhea for the first time today and admits that she may have had an accident because it was difficult to get out of bed. Patient was seen by her stage rigger last month and it was noted that she has had a worsening flare of active RA. She had been on Enbrel and per documentation was placed on methotrexate. On arrival the patient is uncomfortable no acute distress, afebrile with heart in the 110s and vital signs otherwise stable. She appears clinically dry. She has swelling warmth and tenderness of her left knee. Range of motion is limited secondary to pain. She does have her knee extended however. Range of motion of left shoulder also limited secondary to pain. There is no appreciable edema or warmth. Distal PMS intact. EKG without overt acute ischemia. Chest x-ray negative for acute cardiopulmonary process. Plain films of the left knee and shoulder negative for erosive arthropathy no articular effusion. I did perform a limited bedside joint ultrasound and also no overt effusion noted in the left knee or shoulder. WBC 2.4 with neutropenia with ANC of 0.61. H/H and platelets within normal limits. Chemistry without metabolic acidosis. Potassium 2.8, magnesium 1.4 and phosphorus 1.2 with repletion initiated. Lactic acid 0.7, within normal limits. ESR and CRP are elevated at 50 and 9.1, respectively. Procalcitonin is elevated at 2.61. CPK 232, mildly elevated. UA without evidence of infection. Lyme screen was negative. Anaplasma and Babesia smear negative. Anaplasma and Babesia DNA testing pending. COVID-19, RNA, MIN test was negative. CT of the abdomen pelvis was performed and demonstrates evidence of ileus versus enteritis. Given the patient's elevated procalcitonin in the setting of feverishness and neutropenia she was treated empirically with IV cefepime and daptomycin. 30 cc/kg of IV fluids administered. Patient agrees with plan for admission for further management. Case was discussed [place] [facility], who will evaluate the patient for admission. Triage Nursing notes reviewed and agree them. Prior medical records reviewed Vital Signs: reviewed and remarkable for Tachycardia. Differential diagnosis: Fracture, subluxation, dislocation, contusion, ligamentous injury, neurovascular, compartment syndrome, rhabdomyolysis, as well as other pathologies. ER treatment provided: See below. Diagnostics interpreted by me: ECG: Sinus tachycardia, 113 bpm, incomplete right bundle branch block, no overt ST elevation or depression, QTC 449, QRS 100 Cardiac Monitoring: An order for continuous cardiac monitoring was placed and demonstrated sinus tachycardia, 113 bpm, incomplete right bundle branch block. Laboratory studies: See below Imaging studies: See below Consultation(s): [facility], who will evaluate the patient for admission. HPI: The patient is a pleasant 61-year-old woman with a past medical history of rheumatoid arthritis, migraine headaches who presents to the emergency department for evaluation of worsening left knee pain and swelling as well as left shoulder pain that has developed over the past 48 hours. 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 They did do a COVID-19 test at work and this was negative. She reports since then she has slept the rest of the day and has not had much to eat or drink. She denies any fevers, cough, congestion, nausea or vomiting. She reports she did have diarrhea for the first time today and admits that she may have had an accident because it was difficult to get out of bed. Patient was seen by her stage rigger last month and it was noted that she has had a worsening flare of active RA. She had been on Enbrel and per documentation was placed on methotrexate. ROS: See above HPI for pertinent positives & negatives. A total of 10 systems reviewed and were otherwise negative. VITALS:See Below PHYSICAL EXAMINATION: GENERAL: Awake, alert, fatigued/uncomfortable-appearing, in no distress HENT: Normocephalic, atraumatic. Oropharynx with dry mucous membranes and otherwise unremarkable. EYES: Normal conjunctiva. Sclera non-icteric. NECK: Supple. No nuchal rigidity. FROM. No JVD. RESPIRATORY: Clear to auscultation. CARDIAC: Regular rate, normal rhythm. Extremities warm and well perfused. Pulses equal. ABDOMEN: Soft, non-distended. No tenderness to palpation. No rebound or guarding. No masses. RECTAL: Deferred. MUSCULOSKELETAL: Chest examination reveals no tenderness. The back is symmetrical on inspection without obvious abnormality. There is no CVA tenderness to palpation. Swelling warmth and tenderness of her left knee. Range of motion is limited secondary to pain. She does have her knee extended however. Range of motion of left shoulder also limited secondary to pain. There is no appreciable edema or warmth. Distal PMS intact. LOWER EXTREMITIES: Calves are equal size bilaterally and non-tender. No edema. No discoloration. NEURO: Normal sensorium. No sensory or motor deficits noted. SKIN: No rash or jaundice noted. ED COURSE: Critical Care: I have personally spent greater than 75 minutes of critical care time in the direct management of this patient. This includes bedside care, interpretation of diagnostic studies, and testing, discussion with consultants, patient, and family members, and other required patient management activities. This 75 minutes is in excess of all separately billable procedures. Clem Casas MD Past Med/Surg History Medical History Depression History of GI bleed Iron deficiency anemia Osteoarthritis Pernicious anemia PUD (peptic ulcer disease) Rheumatoid arthritis Surgical History History of carpal tunnel release BL History of colonoscopy History of gastric bypass 2009 weight loss - 100 pounds off History of repair of rotator cuff History of surgery LEFT FOOT PLANTAR FASCIITIS History of total abdominal hysterectomy and bilateral salpingo-oophorectomy History of tubal ligation (08/31/13) Hx of colonoscopy Hx of esophagogastroduodenoscopy Hx of tonsillectomy Previous section (08/31/13) Family History Father Colorectal cancer Other Family history of colon cancer in father No family history of adverse response to anesthesia Denies family history of Ovarian cancer Prostate cancer Myocardial infarction Breast cancer Social History Smoking Status: Never smoker Second Hand Exposure: No; Hx Alcohol Use: No Hx Substance Use: No Preferred Language: Kiswahili Communication Ability: Effective Hearing Ability: Normal Financial Reporting Specialist Required: No Beliefs That Will Affect Care: None Current Living Situation: Alone current occupational status: employed 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 How many Children do You have: 3 Feels Safe at Home: Yes Childhood Exposure to Second-Hand Smoke: Yes caffeine: Yes Dental Care, Regularly: Yes Physical Activity Frequency: Daily Seatbelt Use: sometimes Sunscreen Use: Yes Assistive Devices: None Allergies Allergies Allergy/AdvReac Type Severity Reaction Status Date / Time latex Allergy Intermediate REPORTS Verified 06/13/22 19:02 REACTION IS TO "LATEX TAPE ONLY" - "SKIN BUBBLES UP" hydromorphone [From Dilaudid] AdvReac Intermediate "CRAWLING Verified 06/13/22 19:02 SKIN" Home Meds Home Medications Medication Instructions Recorded Confirmed cyanocobalamin (vitamin B-12) 100 mcg IM MONTHLY 08/09/18 06/13/22 1,000 mcg/mL injection kit phenazopyridine 200 mg tablet 200 mg PO TID PRN Pain 05/10/20 06/13/22 (Pyridium) hydrocodone 7.5 mg-acetaminophen 1 tab PO DIRECTED 05/26/20 06/13/22 325 mg tablet escitalopram oxalate 20 mg tablet 20 mg PO DAILY 06/13/22 06/13/22 etanercept 50 mg/mL (1 mL) 0 mg subcut WK 06/13/22 06/13/22 subcutaneous pen injector (Enbrel SureClick) iron sucrose 100 mg iron/5 mL 300 mg IV .COMPLEX PRN LOW IRON 06/13/22 06/13/22 intravenous solution (Venofer) LEVELS sumatriptan succinate 50 mg tablet See Rx Instructions PO .COMPLEX 06/13/22 06/13/22 PRN Migraine Headache Previous Rx's Medication Instructions Recorded valacyclovir 500 mg tablet 500 mg PO BID PRN flare up #30 tabs 03/29/20 levothyroxine 75 mcg tablet 75 mcg PO QAM #90 tabs 06/27/21 (Euthyrox) pantoprazole 40 mg tablet,delayed 40 mg PO DAILY #90 tabs 06/27/21 release ondansetron 4 mg disintegrating 4 mg PO Q8H PRN nausea and 09/12/21 tablet vomiting #20 tabs Results & Data (ED) Vital Signs Vital Signs - 24 hr 06/13/22 17:38 06/13/22 18:30 06/13/22 19:13 Temperature 37.1 C Temperature Source Oral Pulse Rate 112 H 110 H Respiratory Rate 19 18 Blood Pressure 117/76 Blood Pressure Mean 89 Pulse Oximetry 94 95 Oxygen Delivery Method Room Air Room Air Sepsis Recent Fever Within 48 Hours No Sepsis New/Unexplained Change in Mental Status N/A Sepsis Action Taken by Nursing No Action Required Laboratory Data Attestation: I reviewed the patient's lab results. Result diagrams: 06/13/22 17:58 06/13/22 17:58 Lab Results 06/13/22 06/13/22 06/13/22 Range/Units 17:58 17:58 17:58 WBC 2.46 L (4.8-10.8) K/ul RBC 4.45 (3.93-5.22) M/uL Hgb 12.0 (12.0-16.0) g/dl Hct 36.0 (34.1-44.9) % MCV 80.9 (80.0-100.0) fL MCH 27.0 (25.0-34.0) pg MCHC 33.3 (32.0-36.0) g/dL RDW Std Deviation 48.7 H (36.4-46.3) fL RDW Coeff of Will 16.7 H (11.5-14.5) % Plt Count 191 (130-400) K/uL MPV 10.0 (9.4-12.3) fL Immature Gran % (Auto) 1.2 % Neut % (Auto) 24.8 % Lymph % (Auto) 47.6 % [place] % (Auto) 26.0 % Eos % (Auto) 0.0 % Baso % (Auto) 0.4 % Neut # (Auto) 0.61 L* (1.4-6.5) K/uL Lymph # (Auto) 1.17 L (1.2-3.4) K/uL [place] # (Auto) 0.64 (0.24-0.82) K/uL Eos # (Auto) 0.00 (0-0.50) K/uL Baso # (Auto) 0.01 (0-0.2) K/uL Immature Gran # (Auto) 0.03 H (0.00-0.02) K/uL ESR 50 H (0-30) mm/hr PT 12.4 H (9.0-12.0) Seconds INR 1.2 H (0.9-1.1) APTT 28.8 (21.0-31.0) Seconds PTT Ratio 1.0 Sodium (136-145) mmol/L Potassium (3.5-5.1) mmol/L Chloride (98-107) mmol/L Carbon Dioxide (21-32) mmol/L Anion Gap (3-11) BUN (6-23) mg/dl Creatinine (0.6-1.2) mg/dl Est Cr Clr Drug Dosing ml/min Est GFR ( Amer) ml/min Est GFR (Non-Af Amer) ml/min BUN/Creatinine Ratio (10-20) Glucose (70-99(Fasting)) mg/dl Lactate (0.4-2.0) mmol/L Uric Acid (2.6-7.2) mg/dl Calcium (8.5-10.1) mg/dl Phosphorus (2.5-4.9) mg/dl Magnesium (1.7-2.4) mg/dl Total Bilirubin (0.2-1.0) mg/dl AST (13-39) U/L ALT (7-52) U/L Alkaline Phosphatase (34-104) U/L Total Creatine Kinase (26-192) U/L C-Reactive Protein (0-0.5) mg/dl Total Protein (6.0-8.3) gm/dl Albumin (3.4-5.0) gm/dl Globulin (2.5-4.0) gm/dl Albumin/Globulin Ratio (0.9-2) Procalcitonin (0-0.5) ng/ml Anaplasma Smear See Comment Babesia Smear See Comment Lyme Disease IgG Ab (Negative) Lyme Disease IgM Ab (Negative) SARS-CoV-2, RNA, NAAT (NEGATIVE) 06/13/22 06/13/22 06/13/22 Range/Units 17:58 17:58 18:05 WBC (4.8-10.8) K/ul RBC (3.93-5.22) M/uL Hgb (12.0-16.0) g/dl Hct (34.1-44.9) % MCV (80.0-100.0) fL MCH (25.0-34.0) pg MCHC (32.0-36.0) g/dL RDW Std Deviation (36.4-46.3) fL RDW Coeff of Will (11.5-14.5) % Plt Count (130-400) K/uL MPV (9.4-12.3) fL Immature Gran % (Auto) % Neut % (Auto) % Lymph % (Auto) % [place] % (Auto) % Eos % (Auto) % Baso % (Auto) % Neut # (Auto) (1.4-6.5) K/uL Lymph # (Auto) (1.2-3.4) K/uL [place] # (Auto) (0.24-0.82) K/uL Eos # (Auto) (0-0.50) K/uL Baso # (Auto) (0-0.2) K/uL Immature Gran # (Auto) (0.00-0.02) K/uL ESR (0-30) mm/hr PT (9.0-12.0) Seconds INR (0.9-1.1) APTT (21.0-31.0) Seconds PTT Ratio Sodium 132 L (136-145) mmol/L Potassium 2.8 L (3.5-5.1) mmol/L Chloride 99 (98-107) mmol/L Carbon Dioxide 23 (21-32) mmol/L Anion Gap 10 (3-11) BUN 11 (6-23) mg/dl Creatinine 0.63 (0.6-1.2) mg/dl Est Cr Clr Drug Dosing 93.5 ml/min Est GFR ( Amer) 113.8 ml/min Est GFR (Non-Af Amer) 98.2 ml/min BUN/Creatinine Ratio 17.5 (10-20) Glucose 153 H (70-99(Fasting)) mg/dl Lactate (0.4-2.0) mmol/L Uric Acid 3.6 (2.6-7.2) mg/dl Calcium 8.3 L (8.5-10.1) mg/dl Phosphorus 1.2 L* (2.5-4.9) mg/dl Magnesium 1.4 L (1.7-2.4) mg/dl Total Bilirubin 1.0 (0.2-1.0) mg/dl AST 19 (13-39) U/L ALT 11 (7-52) U/L Alkaline Phosphatase 64 (34-104) U/L Total Creatine Kinase 232 H (26-192) U/L C-Reactive Protein 9.19 H (0-0.5) mg/dl Total Protein 6.4 (6.0-8.3) gm/dl Albumin 3.1 L (3.4-5.0) gm/dl Globulin 3.3 (2.5-4.0) gm/dl Albumin/Globulin Ratio 0.9 (0.9-2) Procalcitonin 2.61 H (0-0.5) ng/ml Anaplasma Smear Babesia Smear Lyme Disease IgG Ab Negative (Negative) Lyme Disease IgM Ab Negative (Negative) SARS-CoV-2, RNA, NAAT NEGATIVE (NEGATIVE) 06/13/22 Range/Units 18:16 WBC (4.8-10.8) K/ul RBC (3.93-5.22) M/uL Hgb (12.0-16.0) g/dl Hct (34.1-44.9) % MCV (80.0-100.0) fL MCH (25.0-34.0) pg MCHC (32.0-36.0) g/dL RDW Std Deviation (36.4-46.3) fL RDW Coeff of Will (11.5-14.5) % Plt Count (130-400) K/uL MPV (9.4-12.3) fL Immature Gran % (Auto) % Neut % (Auto) % Lymph % (Auto) % [place] % (Auto) % Eos % (Auto) % Baso % (Auto) % Neut # (Auto) (1.4-6.5) K/uL Lymph # (Auto) (1.2-3.4) K/uL [place] # (Auto) (0.24-0.82) K/uL Eos # (Auto) (0-0.50) K/uL Baso # (Auto) (0-0.2) K/uL Immature Gran # (Auto) (0.00-0.02) K/uL ESR (0-30) mm/hr PT (9.0-12.0) Seconds INR (0.9-1.1) APTT (21.0-31.0) Seconds PTT Ratio Sodium (136-145) mmol/L Potassium (3.5-5.1) mmol/L Chloride (98-107) mmol/L Carbon Dioxide (21-32) mmol/L Anion Gap (3-11) BUN (6-23) mg/dl Creatinine (0.6-1.2) mg/dl Est Cr Clr Drug Dosing ml/min Est GFR ( Amer) ml/min Est GFR (Non-Af Amer) ml/min BUN/Creatinine Ratio (10-20) Glucose (70-99(Fasting)) mg/dl Lactate 0.7 (0.4-2.0) mmol/L Uric Acid (2.6-7.2) mg/dl Calcium (8.5-10.1) mg/dl Phosphorus (2.5-4.9) mg/dl Magnesium (1.7-2.4) mg/dl Total Bilirubin (0.2-1.0) mg/dl AST (13-39) U/L ALT (7-52) U/L Alkaline Phosphatase (34-104) U/L Total Creatine Kinase (26-192) U/L C-Reactive Protein (0-0.5) mg/dl Total Protein (6.0-8.3) gm/dl Albumin (3.4-5.0) gm/dl Globulin (2.5-4.0) gm/dl Albumin/Globulin Ratio (0.9-2) Procalcitonin (0-0.5) ng/ml Anaplasma Smear Babesia Smear Lyme Disease IgG Ab (Negative) Lyme Disease IgM Ab (Negative) SARS-CoV-2, RNA, NAAT (NEGATIVE) Administered Medications Lactated Ringer's (Lr) 1,000 mls @ 125 mls/hr IV .Q8H SHANIA Stop: 06/14/22 15:07 Last Admin: 06/14/22 00:19 Dose: 125 mls/hr Documented By: GEORGE Morphine Sulfate (Morphine Sulfate 2 Mg/Ml Carp) 2 mg IV Q3H PRN PRN Reason: Pain (1,2,3,4,5) & Pre PT Stop: 06/27/22 23:07 Last Admin: 06/14/22 02:23 Dose: 2 mg Documented By: CLMartin Discontinued Medications Sodium Chloride (Nss 1000ml) 1,000 mls @ 999 mls/hr IV .Q1H1M SHANIA Stop: 06/13/22 18:54 Last Infusion: 06/13/22 21:18 Dose: 0 mls/hr Documented By: Admin: 06/13/22 18:13 Dose: 999 mls/hr Documented By: ML Sodium Chloride (Nss 1000ml) 1,000 mls @ 999 mls/hr IV .Q1H1M SHANIA Stop: 06/13/22 19:59 Last Infusion: 06/13/22 21:18 Dose: 0 mls/hr Documented By: Admin: 06/13/22 20:03 Dose: 999 mls/hr Documented By: CC Sodium Chloride (Nss 1000ml) 250 mls @ 999 mls/hr IV .Q16M SHANIA Stop: 06/13/22 20:15 Last Infusion: 06/13/22 22:23 Dose: 0 mls/hr Documented By: Admin: 06/13/22 21:17 Dose: 999 mls/hr Documented By: GEORGE Acetaminophen (Ofirmev) 1,000 mg in 100 mls @ 400 mls/hr IV NOW STA Stop: 06/13/22 18:06 Last Infusion: 06/13/22 19:41 Dose: 0 mls/hr Documented By: Admin: 06/13/22 18:13 Dose: 400 mls/hr Documented By: WHITNEY Magnesium Sulfate/Dextrose (Magnesium Sulfate / D5w) 1 gm in 100 mls @ 100 mls/hr IV Q1H SHANIA Stop: 06/13/22 21:00 Last Infusion: 06/13/22 22:23 Dose: 0 mls/hr Documented By: Admin: 06/13/22 21:17 Dose: 100 mls/hr Documented By: Infusion: 06/13/22 20:56 Dose: 100 mls/hr Documented By: Admin: 06/13/22 19:56 Dose: 100 mls/hr Documented By: EMRE Potassium Chloride (K Jamar / Wtr) 10 meq in 100 mls @ 100 mls/hr IV Q1H SHANIA; Protocol Stop: 06/13/22 20:59 Last Infusion: 06/13/22 22:23 Dose: 0 mls/hr Documented By: Admin: 06/13/22 21:16 Dose: 100 mls/hr Documented By: Infusion: 06/13/22 20:57 Dose: 100 mls/hr Documented By: Admin: 06/13/22 19:57 Dose: 100 mls/hr Documented By: EMRE Potassium Phosphate 9 mmol/ (Sodium Chloride) 253 mls @ 88 mls/hr IV ONE ONE Stop: 06/13/22 22:07 Last Infusion: 06/14/22 00:56 Dose: 0 mls/hr Documented By: Admin: 06/13/22 22:26 Dose: 88 mls/hr Documented By: GEORGE Cefepime HCl (Maxipime) 2,000 mg in 20 mls @ 5 mls/min IV NOW STA; Protocol Stop: 06/13/22 19:25 Last Admin: 06/13/22 19:58 Dose: 5 mls/min Documented By: EMRE Daptomycin 375 mg/ Syringe 7.5 mls @ 3.75 mls/min IV NOW STA; Protocol Stop: 06/13/22 19:23 Last Admin: 06/13/22 20:04 Dose: 3.75 mls/min Documented By: EMRE Magnesium Sulfate/Dextrose (Magnesium Sulfate / D5w) 1 gm in 100 mls @ 50 mls/hr IV Q2H SHNAIA Stop: 06/14/22 03:07 Last Admin: 06/14/22 01:32 Dose: 50 mls/hr Documented By: Infusion: 06/14/22 01:32 Dose: 50 mls/hr Documented By: Admin: 06/14/22 00:19 Dose: 50 mls/hr Documented By: GEORGE Vancomycin HCl 1,500 mg/ (Sodium Chloride) 530 mls @ 200 mls/hr IV ONE ONE; Protocol Stop: 06/14/22 02:38 Last Infusion: 06/14/22 03:05 Dose: 0 mls/hr Documented By: Admin: 06/14/22 00:26 Dose: 200 mls/hr Documented By: GEORGE Potassium Phosphate 9 mmol/ (Sodium Chloride) 253 mls @ 88 mls/hr IV ONE ONE Stop: 06/14/22 02:22 Last Admin: 06/14/22 00:54 Dose: 88 mls/hr Documented By: GEORGE Ioversol (Optiray 320 100ml) 94 ml IV ONCE ONE Stop: 06/13/22 19:32 Last Admin: 06/13/22 19:33 Dose: 94 ml Documented By: SUSHILA Ketorolac Tromethamine (Ketorolac Tromethamine 15 Mg/Ml Vial) 15 mg IV NOW STA Stop: 06/13/22 17:53 Last Admin: 06/13/22 18:13 Dose: 15 mg Documented By: WHITNEY Methylprednisolone (Methylprednisolone 125 Mg/2 Ml Vial) 125 mg IV NOW STA Stop: 06/13/22 17:53 Last Admin: 06/13/22 18:13 Dose: 125 mg Documented By: ML Morphine Sulfate (Morphine Sulfate 2 Mg/Ml Carp) 2 mg IV NOW STA Stop: 06/13/22 19:45 Last Admin: 06/13/22 20:07 Dose: 2 mg Documented By: EMRE Potassium Phosphate (Potassium Phos 3 Mmol/1 Ml Infusion) 9 mmol IV NOW STA Stop: 06/13/22 19:01 Last Admin: 06/13/22 22:26 Dose: Not Given Documented By: GEORGE Imaging Data Radiologist's Impression: Chest X-Ray 06/13/22 17:52 XR chest 1V portable CLINICAL HISTORY: SEPSIS. COMPARISON STUDY: No previous studies for comparison. TECHNIQUE: 1 view of the chest FINDINGS: Single frontal view of the chest demonstrates the cardiomediastinal silhouette to be within normal limits. The lungs are clear of alveolar opacities. There is no evidence for pleural effusion. There is no evidence for vascular congestion. There is no acute osseous pathology. IMPRESSION: 1. No acute cardiopulmonary disease. ACT 112: Negative or not required by law. Electronically signed by: Shekhar Alvarado M.D. 06/13/2022 6:34 PM Knee X-Ray 06/13/22 17:52 XR knee LT 3V CLINICAL HISTORY: Pain. Reported history of rheumatoid arthritis. COMPARISON STUDY: No previous studies for comparison. TECHNIQUE: 4 left knee views FINDINGS: Bones: There is no evidence for an acute fracture or dislocation. There is no lytic or blastic lesion. Joints: The joint spaces are maintained. There is no evidence for an erosive arthropathy. There is no evidence for an intra-articular effusion. The bones are in anatomic alignment. Soft tissues: There is no focal soft tissue abnormality. There is no radiopaque foreign body. IMPRESSION: 1. No acute osseous pathology. 2. No evidence for an erosive arthropathy. ACT 112: Negative or not required by law. Electronically signed by: Shekhar Alvarado M.D. 06/13/2022 6:37 PM Shoulder X-Ray 06/13/22 17:52 XR shoulder LT min 2V routine CLINICAL HISTORY: Shoulder pain. History of rheumatoid arthritis.. COMPARISON STUDY: No previous studies for comparison. TECHNIQUE: 3 left shoulder views FINDINGS: Bones: The bones are osteopenic. There is no evidence for an acute fracture or dislocation. There is no lytic or blastic lesion. Joints: The joint spaces are maintained. There is no evidence for an erosive arthropathy. The bones are in anatomic alignment. Soft tissues: There is no focal soft tissue abnormality. There is no radiopaque foreign body. IMPRESSION: 1. No acute osseous pathology. 2. Osteopenia with no evidence for erosive arthropathy. ACT 112: Negative or not required by law. Electronically signed by: Shekhar Alvarado M.D. 06/13/2022 6:36 PM Abdomen/Pelvis CT 06/13/22 19:00 CT abd pelvis IV con only CLINICAL HISTORY: diarrhea, neutropenia, ?sepsis COMPARISON STUDY: 05/26/2020 CT DOSE: 404.15 mGy.cm TECHNIQUE: Standard CT of the Abdomen and Pelvis was performed with IV contrast. A dose lowering technique was utilized adhering to the principles of ALARA. Contrast Volume: Optiray 320, 94 ml. The patient did not receive oral contrast. FINDINGS: Lung base: The lung bases are clear. Abdominal cavity: There is no evidence for abdominal mass, adenopathy or ascites. Liver: There is homogeneous attenuation of the liver parenchyma. There is no evidence for enhancing mass lesion. Spleen: There is homogeneous attenuation of the splenic parenchyma. There is no enhancing mass lesion. Pancreas: There is homogeneous attenuation of the pancreatic parenchyma. There i s no evidence for mass lesion or peripancreatic fluid collection. Gall Bladder: The gallbladder is well distended with no evidence for intraluminal calculi, wall thickening or pericholecystic edema. Adrenal glands: The adrenal glands are normal in size and attenuation. There is no evidence for enhancing mass lesion. Kidneys: Compared to the previous examination, the kidneys are homogeneous in attenuation bilaterally. Previously identified left UPJ calculus is no longer seen. There is a 2 mm nonobstructing left renal calculus present. There are now 2, 4 mm nonobstructing right renal calculi. There is no evidence for hydronephrosis bilaterally. There are no gross renal masses. Bowel: The patient is again status post previous Jorge-en-Y gastric surgery. Fluid-filled loops of both large and small bowel are seen throughout the abdomen and pelvis without evidence for disproportionate dilatation or obstruction. The findings are most characteristic of an ileus versus gastroenteritis. Addit ionally, there is mild to moderate fecal stasis and fecal impaction of the rectosigmoid colon without evidence for obstruction. There are no inflammatory changes present. There is no evidence for free air. There is a normal appendix in the right lower quadrant. Bladder: The bladder is mildly distended with no evidence for focal mass, calculus or diverticulum. : There is no evidence for pelvic mass or adenopathy. There is no evidence for pelvic ascites. The patient is status post hysterectomy. Vasculature: There is no evidence for aneurysmal dilatation of the abdominal aorta. Osseous structures: There is no acute osseous pathology. Degenerative changes are seen within the spine. IMPRESSION: 1. CT findings most characteristic of an ileus versus gastroenteritis. No evidence for bowel obstruction. 2. There is also mild to moderate fecal stasis and fecal impaction of the rectosigmoid colon without evidence for obstruction. 3. Bilateral nonobstructing renal calculi are present. 4. 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 5. Additional nonacute findings are delineated above. ACT 112: Negative or not required by law. Electronically signed by: Shekhar Alvarado M.D. 06/13/2022 7:49 PM Discharge Plan Visit Data Chief Complaint: Leg Injury/Pain ED Provider: Clem Casas Discharge Problem: Neutropenia, Left knee pain, Left shoulder pain, Diarrhea, Rheumatoid arthritis, seropositive, Hypomagnesemia, Hypokalemia, Hypophosphatemia Patient Disposition: Admitted As Inpatient Discharge Instructions Interventions: ED Discharge Assessment Last Done: 06/13/22 23:30
[2022-06-13 18:30] LABS: INR 1.2 (0.9-1.1); Partial Thromboplastin Time 28.8 Seconds (21.0-31.0); Prothrombin Time 12.4 Seconds (9.0-12.0)
[2022-06-13 18:32] LABS: Basophils # (auto) 0.01 K/uL (0-0.2); Basophils % (auto) 0.4 %; Immature Granulocytes # (auto) 0.03 K/uL (0.00-0.02); Immature Granulocytes % (auto) 1.2 %; Lymphocytes # (auto) 1.17 K/uL (1.2-3.4); Lymphocytes % (auto) 47.6 %; Monocytes # (auto) 0.64 K/uL (0.24-0.82); Neutrophils # (auto) 0.61 K/uL (1.4-6.5); Neutrophils % (auto) 24.8 %
--- NOTE | 2022-06-13 18:36 | XRay Report ---
XR chest 1V portable CLINICAL HISTORY: SEPSIS. COMPARISON STUDY: No previous studies for comparison. TECHNIQUE: 1 view of the chest FINDINGS: Single frontal view of the chest demonstrates the cardiomediastinal silhouette to be within normal li mits. The lungs are clear of alveolar opacities. There is no evidence for pleural effusion. There is no evidence for vascular congestion. There is no acute osseous pathology. IMPRESSION: 1. No acute cardiopulmonary disease. ACT 112: Negative or not required by law. Electronically signed by: Shekhar Alvarado M.D. 06/13/2022 6:34 PM
--- NOTE | 2022-06-13 18:37 | XRay Report ---
XR shoulder LT min 2V routine CLINICAL HISTORY: Shoulder pain. History of rheumatoid arthritis.. COMPARISON STUDY: No previous studies for comparison. TECHNIQUE: 3 left shoulder views FINDINGS: Bones: The bones are osteopenic. There is no evidence for an acute fracture or dislocation. There is no lytic or blastic lesion. Joints: The joint spaces are maintained. There is no evidence for an erosive arthropathy. The bones a re in anatomic alignment. Soft tissues: There is no focal soft tissue abnormality. There is no radiopaque foreign body. IMPRESSION: 1. No acute osseous pathology. 2. Osteopenia with no evidence for erosive arthropathy. ACT 112: Negative or not required by law. Electronically signed by: Shekhar Alvarado M.D. 06/13/2022 6:36 PM
--- NOTE | 2022-06-13 18:38 | XRay Report ---
XR knee LT 3V CLINICAL HISTORY: Pain. Reported history of rheumatoid arthritis. COMPARISON STUDY: No previous studies for comparison. TECHNIQUE: 4 left knee views FINDINGS: Bones: There is no evidence for an acute fracture or dislocation. There is no lytic or blastic lesion . Joints: The joint spaces are maintained. There is no evidence for an erosive arthropathy. There is no evidence for an intra-articular effusion. The bones are in anatomic alignment. Soft tissues: There is no focal soft tissue abnormality. There is no radiopaque foreign body. IMPRESSION: 1. No acute osseous pathology. 2. No evidence for an erosive arthropathy. ACT 112: Negative or not required by law. Electronically signed by: Shekhar Alvarado M.D. 06/13/2022 6:37 PM
[2022-06-13 18:40] LABS: BUN Creatinine Ratio 17.5 (10-20); C Reactive Protein 9.19 mg/dl (0-0.5); Calcium 8.3 mg/dl (8.5-10.1); Creatinine Clr Calc Pharmacy 93.5 ml/min; Est GFR (African American) 113.8 ml/min; Est GFR (Non-African American) 98.2 ml/min; Potassium 2.8 mmol/L (3.5-5.1)
[2022-06-13 18:51] LABS: Procalcitonin 2.61 ng/ml (0-0.5)
[2022-06-13 18:56] LABS: Albumin Globulin Ratio 0.9 (0.9-2); Albumin Level 3.1 gm/dl (3.4-5.0); Globulin 3.3 gm/dl (2.5-4.0); Magnesium 1.4 mg/dl (1.7-2.4); Phosphorus 1.2 mg/dl (2.5-4.9); Total Protein 6.4 gm/dl (6.0-8.3); Uric Acid 3.6 mg/dl (2.6-7.2)
[2022-06-13 18:57] LABS: Lyme Ab IgG w/WB Rflx Negative (Negative); Lyme Ab IgM w/WB Rflx Negative (Negative)
[2022-06-13] MEDS ORDERED: POTASSIUM PHOS 3 MMOL/1 ML INFUSION IV STA (19:00)
[2022-06-13] MEDS ORDERED: POTASSIUM PHOSPHATE 9 MMOL in SODIUM CHLORIDE 0.9% 250 ML IV ONE ×2 (19:15→23:30)
[2022-06-13] MEDS ORDERED: CEFEPIME 2,000 MG/20 ML VIAL IV STA (19:22)
[2022-06-13] MEDS ORDERED: DAPTOmycin 375 MG in SYRINGE 0 ML IV STA (19:22)
[2022-06-13] MEDS ORDERED: OPTIRAY 320 100ml IV ONE (19:31)
[2022-06-13] MEDS ORDERED: MoRPHine SULFATE 2 MG/ML CARP IV STA (19:44)
--- NOTE | 2022-06-13 19:51 | CT Scan Report ---
CT abd pelvis IV con only CLINICAL HISTORY: diarrhea, neutropenia, ?sepsis COMPARISON STUDY: 05/26/2020 CT DOSE: 404.15 mGy.cm TECHNIQUE: Standard CT of the Abdomen and Pelvis was performed with IV contrast. A dose lowering chet hnique was utilized adhering to the principles of ALARA. Contrast Volume: Optiray 320, 94 ml. The patient did not receive oral contrast. FINDINGS: Lung base: The lung bases are clear. Abdominal cavity: There is no evidence for abdominal mass, adenopathy or ascites. Liver: There is homogeneous attenuation of the liver parenchyma. There is no evidence for enhancing m ass lesion. Spleen: There is homogeneous attenuation of the splenic parenchyma. There is no enhancing mass lesion . Pancreas: There is homogeneous attenuation of the pancreatic parenchyma. There is no evidence for mas s lesion or peripancreatic fluid collection. Gall Bladder: The gallbladder is well distended with no evidence for intraluminal calculi, wall thick ening or pericholecystic edema. Adrenal glands: The adrenal glands are normal in size and attenuation. There is no evidence for enhan cing mass lesion. Kidneys: Compared to the previous examination, the kidneys are homogeneous in attenuation bilaterally . Previously identified left UPJ calculus is no longer seen. There is a 2 mm nonobstructing left delmi l calculus present. There are now 2, 4 mm nonobstructing right renal calculi. There is no evidence fo r hydronephrosis bilaterally. There are no gross renal masses. Bowel: The patient is again status post previous Jorge-en-Y gastric surgery. Fluid-filled loops of bot h large and small bowel are seen throughout the abdomen and pelvis without evidence for disproportion ate dilatation or obstruction. The findings are most characteristic of an ileus versus gastroenteriti s. Additionally, there is mild to moderate fecal stasis and fecal impaction of the rectosigmoid colon without evidence for obstruction. There are no inflammatory changes present. There is no evidence fo r free air. There is a normal appendix in the right lower quadrant. Bladder: The bladder is mildly distended with no evidence for focal mass, calculus or diverticulum. : There is no evidence for pelvic mass or adenopathy. There is no evidence for pelvic ascites. The patient is status post hysterectomy. Vasculature: There is no evidence for aneurysmal dilatation of the abdominal aorta. Osseous structures: There is no acute osseous pathology. Degenerative changes are seen within the spi ne. IMPRESSION: 1. CT findings most characteristic of an ileus versus gastroenteritis. No evidence for bowel obstruct ion. 2. There is also mild to moderate fecal stasis and fecal impaction of the rectosigmoid colon without evidence for obstruction. 3. Bilateral nonobstructing renal calculi are present. 4. 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 5. Additional nonacute findings are delineated above. ACT 112: Negative or not required by law. Electronically signed by: Shekhar Alvarado M.D. 06/13/2022 7:49 PM
[2022-06-13] MEDS: MAGNESIUM SULFATE / D5W 1 GM/100 ML BAG IV SCH ×2 (19:56→21:17)
[2022-06-13] MEDS: POTASSIUM CHLORIDE / WTR 10 MEQ/100 ML PLCT IV SCH ×2 (19:57→21:16)
[2022-06-13] MEDS ORDERED: SODIUM CHLORIDE 0.9% 1000ML 250 ML IV SCH (20:00)
--- NOTE | 2022-06-13 20:24 | History & Physical Report ---
Date of Service June 13, 2022 Assessment & Plan (1) Left knee pain: Plan: 61yo female with history of RA on Enbrel injection as well as methotrexate (Per Rheumatology note from 05/01/22 - patient on MTX 15mg weekly and folic acid) presenting with 2-3 days of progressive swelling and pain in her left knee as well as pain in her left shoulder. Patient with chills at home as well as 2 episodes of diarrhea. Tachycardic on arrival. Labs are significant for elevation of ESR=50, CRP=9.19 as well as Procalcitonin of 2.6. She is leukopenic with WBC=2.46 with lymphopenia and neutropenia as well. Ddx to include: flare of RA, septic joint/infection vs crystal arthropathy. No obvious fluid collection noted by ER attending on bedside ultrasound. Patient has received Toradol, Solumedrol as well as antibiotics - Daptomycin and Cefepime -Admit to medical -Check uric acid level -Check Creatine kinase level x 1 -Hold Methotrexate for now until infection is ruled out -Hold Enbrel for now -Check CT of the left knee to further assess for collection -Check ESR, CRP and Procalcitonin in AM -Empiric antibiotics with Vancomycin and Cefepime -Pain control with Morphine PRN -Orthopedic consultation appreciated (2) Left shoulder pain: Plan: Pain with palpation of left AC joint. Limited mobility. No trauma. X-ray shoulder with no bony abnormality -?RA flare -Pain control as above -Orthopedics consultation appreciated -Will defer additional imaging of the shoulder for now (3) Diarrhea: Plan: Patient reports two episodes of watery diarrhea prior to arrival. CT of the abdomen obtained in the ER suggestive of possible gastroenteritis as well as presence of moderate fecal stasis -Stool PCR panel sent -Senshantal qAM -Colace, Dulcolax PRN (4) Electrolyte abnormality: Plan: Patient with several electrolyte abnormalities to include hypokalemia with K=2.8, hypomagnesemia with Mg=1.4 and hypophosphatemia with PO4=1.2. Calcium is slightly low at 8.3 but appropriately corrects for Albumin of 3. Has been given 1gm of Mg as well as 20mEq of KCl and KPhos 9 mmol in ER thus far. ?Diarrheal losses - patient only with 2 episodes of diarrhea prior to arrival. ?Poor intake. -LR at 125mL/hr x 2 liters -Will order additional Mg x 2gm -KPhos x 9 mmol -Repeat electrolytes in AM and continue to replete as needed (5) Leukopenia: Plan: Patient with leukopenia - WBC=2.46 with neutropenia and lymphopenia. Possibly secondary to methotrexate use. ?infectious source. Lyme is NEGATIVE as is Covid-19 testing. Anaplasmosis and babesia have been sent -Followup on Anaplasmosis and Babesia labs -Holding methotrexate as above -CBC in AM -Check B12 level (6) Pernicious anemia: Plan: History of pernicious anemia. H/H stable -Check B12 level (7) Depression: Plan: Chronic. Stable -Continue Escitalopram (8) Hypothyroidism: Plan: Chronic. -Check TSH with AM labs -Continue Synthroid 75mcg po daily (9) Rheumatoid arthritis, seropositive: Plan: Patient with Rheumatoid arthritis. She is presently on Enbrel injections q weekly which she administers on . She was recently started on Methotrexate on 05/01/22 by Rheumatology. -Hold MTX and Enbrel for now due to possible infection (10) PUD (peptic ulcer disease): Plan: Chronic. Stable on medication -Continue Protonix 40mg po daily History of Present Illness Chief Complaint: left knee and left shoulder pain Primary Care Provider: AMANDA Wolf Mary Calvillo is a 61yo female with history of Rheumatoid Arthritis on Enbrel and recently started on Methotrexate, history of Jorge-en-Y gastric bypass surgery and pernicious anemia. Patient was in her usual state of health until approximately 3 days ago when she developed pain and swelling in her left knee as well as pain in her left shoulder. She was able to go to work yesterday with a knee brace in place. Today, however, she had to leave early due to pain, stiffness and inability to bear weight on her left leg. She feels that her knee is popping. She denies fall, trauma, twisting or any different activity from usual. She did have 2 episodes of watery diarrhea today prior to arrival. Non-bloody/non-mucoid. Poor appetite and decreased oral intake over the last day. She denies fever but has been having some chills. Denies chest pain, palpitatio ns, cough, SOB, abdominal pain, nausea, vomiting. She denies travel, sick contacts, tick or mosquito bites. In the ER patient tachycardic at 112. Temperature obtained after administration of Tylenol and Toradol - afebrile at 37.1. X-ray imaging of knee with no pathology. Bedside ultrasound performed by ER attending - no collection or effusion noted. ER Course: NSS x 2L then at 250mL/hr Tylenol 1gm IV Toradol 15mg IV Solumedrol 125mg IV Potassium chloride 20meq Magnesium sulfate x 1 gm Cefepime 2gm Daptomycin 375mg Morphine 2mg IV Allergies Allergy/AdvReac Type Severity Reaction Status Date / Time latex Allergy Intermediate REPORTS Verified 06/13/22 19:02 REACTION IS TO "LATEX TAPE ONLY" - "SKIN BUBBLES UP" hydromorphone [From Dilaudid] AdvReac Intermediate "CRAWLING Verified 06/13/22 19:02 SKIN" Home Medications Medication Instructions Recorded Confirmed Type cyanocobalamin (vitamin B-12) 100 mcg IM MONTHLY 08/09/18 06/13/22 History 1,000 mcg/mL injection kit valacyclovir 500 mg tablet 500 mg PO BID PRN flare up #30 tabs 03/29/20 06/13/22 Rx phenazopyridine 200 mg tablet 200 mg PO TID PRN Pain 05/10/20 06/13/22 History (Pyridium) hydrocodone 7.5 mg-acetaminophen 1 tab PO DIRECTED 05/26/20 06/13/22 History 325 mg tablet levothyroxine 75 mcg tablet 75 mcg PO QAM #90 tabs 06/27/21 06/13/22 Rx (Euthyrox) pantoprazole 40 mg tablet,delayed 40 mg PO DAILY #90 tabs 06/27/21 06/13/22 Rx release ondansetron 4 mg disintegrating 4 mg PO Q8H PRN nausea and 09/12/21 06/13/22 Rx tablet vomiting #20 tabs escitalopram oxalate 20 mg tablet 20 mg PO DAILY 06/13/22 06/13/22 History etanercept 50 mg/mL (1 mL) 0 mg subcut WK 06/13/22 06/13/22 History subcutaneous pen injector (Enbrel SureClick) iron sucrose 100 mg iron/5 mL 300 mg IV .COMPLEX PRN LOW IRON 06/13/22 06/13/22 History intravenous solution (Venofer) LEVELS sumatriptan succinate 50 mg tablet See Rx Instructions PO .COMPLEX 06/13/22 06/13/22 History PRN Migraine Headache Past Med/Surg History Medical History (Updated 06/13/22 @ 22:44 by Monisha Davila DO) Depression History of GI bleed Iron deficiency anemia Osteoarthritis Pernicious anemia PUD (peptic ulcer disease) Rheumatoid arthritis Surgical History (Updated 04/05/22 @ 16:20 by Sergey Mckinley DO) History of carpal tunnel release BL History of colonoscopy History of gastric bypass 2008 weight loss - 100 pounds off History of repair of rotator cuff History of surgery LEFT FOOT PLANTAR FASCIITIS History of total abdominal hysterectomy and bilateral salpingo-oophorectomy History of tubal ligation (08/31/13) Hx of colonoscopy Hx of esophagogastroduodenoscopy Hx of tonsillectomy Previous section (08/31/13) Family History Father Colorectal cancer Other Family history of colon cancer in father No family history of adverse response to anesthesia Denies family history of Ovarian cancer Prostate cancer Myocardial infarction Breast cancer Social History Smoking Status: Never smoker Second Hand Exposure: No; Hx Alcohol Use: No Hx Substance Use: No Preferred Language: Estonian Communication Ability: Effective Hearing Ability: Normal Accessories Repairer Required: No Beliefs That Will Affect Care: None Current Living Situation: Alone current occupational status: employed 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 How many Children do You have: 3 Feels Safe at Home: Yes Childhood Exposure to Second-Hand Smoke: Yes caffeine: Yes Dental Care, Regularly: Yes Physical Activity Frequency: Daily Seatbelt Use: sometimes Sunscreen Use: Yes Assistive Devices: Denture - Upper and Denture - Lower Review of Systems Review of Systems: All systems reviewed & are unremarkable except as noted in HPI & below Physical Exam Physical Exam: General: patient appears fatigued, NAD, non-toxic in appearance, AA&O x 4 Skin: warm, dry, intact, no rashes or lesions HEENT: NC/AT, PERRL, EOMI, anicteric sclera, conjunctiva without injection, external ear normal to inspection and nontender, nares patent, dry mucus membranes, dentition intact, no oropharyngeal lesions, neck supple, trachea midline, no LAD, no thyromegaly, no JVD Heart: +S1/S2, regular, no m/r/g Lungs: equal air entry bilaterally, no rales/rhonchi/wheezes Abd: +BS, soft, ND, mild tenderness in lower abdomen to deep palpation, no rebound/guarding/peritoneal signs, no masses/organomegaly/ascites Ext: warm, 2+ pulses in UE/LE bilaterally, no clubbing/cyanosis Left knee - swollen, warm, tender. No obvious effusion on exam. Tenderness mainly above patella as well as medial joint space. No anterior or posterior laxity. Some medial joint tenderness with valgas stress. Full active ROM with pain on motion. Left shoulder - No deformity. Tenderness with palpation of left AC joint. Limited active motion - patient needs to lift her arm up. Pain with passive motion. Neuro: nonfocal, patient AA&O x 4, speech intact, no facial droop, moving all extremities on command with equal strength 5/5 Results & Data Results & Data ([facility]) Vital Signs (Past 12 Hours) Vital Signs Temp Pulse Resp BP Pulse Ox O2 Del Method 06/13/22 19:13 37.1 C 06/13/22 18:30 110 H 18 95 Room Air 06/13/22 17:38 112 H 19 117/76 94 Room Air Laboratory Results Laboratory Results WBC 2.46 K/ul (4.8-10.8) L 06/13/22 17:58 RBC 4.45 M/uL (3.93-5.22) 06/13/22 17:58 Hgb 12.0 g/dl (12.0-16.0) 06/13/22 17:58 Hct 36.0 % (34.1-44.9) 06/13/22 17:58 MCV 80.9 fL (80.0-100.0) 06/13/22 17:58 MCH 27.0 pg (25.0-34.0) 06/13/22 17:58 MCHC 33.3 g/dL (32.0-36.0) 06/13/22 17:58 RDW Std Deviation 48.7 fL (36.4-46.3) H 06/13/22 17:58 RDW Coeff of Will 16.7 % (11.5-14.5) H 06/13/22 17:58 Plt Count 191 K/uL (130-400) 06/13/22 17:58 MPV 10.0 fL (9.4-12.3) 06/13/22 17:58 Immature Gran % (Auto) 1.2 % 06/13/22 17:58 Neut % (Auto) 24.8 % 06/13/22 17:58 Lymph % (Auto) 47.6 % 06/13/22 17:58 [place] % (Auto) 26.0 % 06/13/22 17:58 Eos % (Auto) 0.0 % 06/13/22 17:58 Baso % (Auto) 0.4 % 06/13/22 17:58 Neut # (Auto) 0.61 K/uL (1.4-6.5) L* 06/13/22 17:58 Lymph # (Auto) 1.17 K/uL (1.2-3.4) L 06/13/22 17:58 [place] # (Auto) 0.64 K/uL (0.24-0.82) 06/13/22 17:58 Eos # (Auto) 0.00 K/uL (0-0.50) 06/13/22 17:58 Baso # (Auto) 0.01 K/uL (0-0.2) 06/13/22 17:58 Immature Gran # (Auto) 0.03 K/uL (0.00-0.02) H 06/13/22 17:58 ESR 50 mm/hr (0-30) H 06/13/22 17:58 PT 12.4 Seconds (9.0-12.0) H 06/13/22 17:58 INR 1.2 (0.9-1.1) H 06/13/22 17:58 APTT 28.8 Seconds (21.0-31.0) 06/13/22 17:58 PTT Ratio 1.0 06/13/22 17:58 Sodium 132 mmol/L (136-145) L 06/13/22 17:58 Potassium 2.8 mmol/L (3.5-5.1) L 06/13/22 17:58 Chloride 99 mmol/L (98-107) 06/13/22 17:58 Carbon Dioxide 23 mmol/L (21-32) 06/13/22 17:58 Anion Gap 10 (3-11) 06/13/22 17:58 BUN 11 mg/dl (6-23) 06/13/22 17:58 Creatinine 0.63 mg/dl (0.6-1.2) 06/13/22 17:58 Est Cr Clr Drug Dosing 93.5 ml/min 06/13/22 17:58 Est GFR ( Amer) 113.8 ml/min 06/13/22 17:58 Est GFR (Non-Af Amer) 98.2 ml/min 06/13/22 17:58 BUN/Creatinine Ratio 17.5 (10-20) 06/13/22 17:58 Glucose 153 mg/dl (70-99(Fasting)) H 06/13/22 17:58 Lactate 0.7 mmol/L (0.4-2.0) 06/13/22 18:16 Uric Acid 3.6 mg/dl (2.6-7.2) 06/13/22 17:58 Calcium 8.3 mg/dl (8.5-10.1) L 06/13/22 17:58 Phosphorus 1.2 mg/dl (2.5-4.9) L* 06/13/22 17:58 Magnesium 1.4 mg/dl (1.7-2.4) L 06/13/22 17:58 Total Bilirubin 1.0 mg/dl (0.2-1.0) 06/13/22 17:58 AST 19 U/L (13-39) 06/13/22 17:58 ALT 11 U/L (7-52) 06/13/22 17:58 Alkaline Phosphatase 64 U/L (34-104) 06/13/22 17:58 C-Reactive Protein 9.19 mg/dl (0-0.5) H 06/13/22 17:58 Total Protein 6.4 gm/dl (6.0-8.3) 06/13/22 17:58 Albumin 3.1 gm/dl (3.4-5.0) L 06/13/22 17:58 Globulin 3.3 gm/dl (2.5-4.0) 06/13/22 17:58 Albumin/Globulin Ratio 0.9 (0.9-2) 06/13/22 17:58 Procalcitonin 2.61 ng/ml (0-0.5) H 06/13/22 17:58 Urine Color Yellow 06/13/22 20:43 Urine Appearance Clear (Clear) 06/13/22 20:43 Urine pH 6.0 (4.5-7.5) 06/13/22 20:43 Ur Specific [place] 1.018 (1.000-1.030) 06/13/22 20:43 Urine Protein Negative (Negative) 06/13/22 20:43 Urine Glucose (UA) Negative (Negative) 06/13/22 20:43 Urine Ketones Negative (Negative) 06/13/22 20:43 Urine Blood Negative (Negative) 06/13/22 20:43 Urine Nitrite Negative (Negative) 06/13/22 20:43 Urine Bilirubin Negative (Negative) 06/13/22 20:43 Urine Urobilinogen Negative (Negative) 06/13/22 20:43 Ur Leukocyte Esterase Negative (Negative) 06/13/22 20:43 Anaplasma Smear See Comment 06/13/22 17:58 Babesia Smear See Comment 06/13/22 17:58 Lyme Disease IgG Ab Negative (Negative) 06/13/22 17:58 Lyme Disease IgM Ab Negative (Negative) 06/13/22 17:58 SARS-CoV-2, RNA, NAAT NEGATIVE (NEGATIVE) 06/13/22 18:05 Impressions Chest X-Ray 06/13/22 17:52 XR chest 1V portable CLINICAL HISTORY: SEPSIS. COMPARISON STUDY: No previous studies for comparison. TECHNIQUE: 1 view of the chest FINDINGS: Single frontal view of the chest demonstrates the cardiomediastinal silhouette to be within normal limits. The lungs are clear of alveolar opacities. There is no evidence for pleural effusion. There is no evidence for vascular congestion. There is no acute osseous pathology. IMPRESSION: 1. No acute cardiopulmonary disease. ACT 112: Negative or not required by law. Electronically signed by: Shekhar Alvarado M.D. 06/13/2022 6:34 PM Knee X-Ray 06/13/22 17:52 XR knee LT 3V CLINICAL HISTORY: Pain. Reported history of rheumatoid arthritis. COMPARISON STUDY: No previous studies for comparison. TECHNIQUE: 4 left knee views FINDINGS: Bones: There is no evidence for an acute fracture or dislocation. There is no lytic or blastic lesion. Joints: The joint spaces are maintained. There is no evidence for an erosive arthropathy. There is no evidence for an intra-articular effusion. The bones are in anatomic alignment. Soft tissues: There is no focal soft tissue abnormality. There is no radiopaque foreign body. IMPRESSION: 1. No acute osseous pathology. 2. No evidence for an erosive arthropathy. ACT 112: Negative or not required by law. Electronically signed by: Shekhar Alvarado M.D. 06/13/2022 6:37 PM Shoulder X-Ray 06/13/22 17:52 XR shoulder LT min 2V routine CLINICAL HISTORY: Shoulder pain. History of rheumatoid arthritis.. COMPARISON STUDY: No previous studies for comparison. TECHNIQUE: 3 left shoulder views FINDINGS: Bones: The bones are osteopenic. There is no evidence for an acute fracture or dislocation. There is no lytic or blastic lesion. Joints: The joint spaces are maintained. There is no evidence for an erosive arthropathy. The bones are in anatomic alignment. Soft tissues: There is no focal soft tissue abnormality. There is no radiopaque foreign body. IMPRESSION: 1. No acute osseous pathology. 2. Osteopenia with no evidence for erosive arthropathy. ACT 112: Negative or not required by law. Electronically signed by: Shekhar Alvarado M.D. 06/13/2022 6:36 PM Abdomen/Pelvis CT 06/13/22 19:00 CT abd pelvis IV con only CLINICAL HISTORY: diarrhea, neutropenia, ?sepsis COMPARISON STUDY: 05/26/2020 CT DOSE: 404.15 mGy.cm TECHNIQUE: Standard CT of the Abdomen and Pelvis was performed with IV contrast. A dose lowering technique was utilized adhering to the principles of ALARA. Contrast Volume: Optiray 320, 94 ml. The patient did not receive oral contrast. FINDINGS: Lung base: The lung bases are clear. Abdominal cavity: There is no evidence for abdominal mass, adenopathy or ascites. Liver: There is homogeneous attenuation of the liver parenchyma. There is no evidence for enhancing mass lesion. Spleen: There is homogeneous attenuation of the splenic parenchyma. There is no enhancing mass lesion. Pancreas: There is homogeneous attenuation of the pancreatic parenchyma. There is no evidence for mass lesion or peripancreatic fluid collection. Gall Bladder: The gallbladder is well distended with no evidence for intraluminal calculi, wall thickening or pericholecystic edema. Adrenal glands: The adrenal glands are normal in size and attenuation. There is no evidence for enhancing mass lesion. Kidneys: Compared to the previous examination, the kidneys are homogeneous in attenuation bilaterally. Previously identified left UPJ calculus is no longer seen. There is a 2 mm nonobstructing left renal calculus present. There are now 2, 4 mm nonobstructing right renal calculi. There is no evidence for hydronephrosis bilaterally. There are no gross renal masses. Bowel: The patient is again status post previous Jorge-en-Y gastric surgery. Fluid-filled loops of both large and small bowel are seen throughout the abdomen and pelvis without evidence for disproportionate dilatation or obstruction. The findings are most characteristic of an ileus versus gastroenteritis. Additionally, there is mild to moderate fecal stasis and fecal impaction of the rectosigmoid colon without evidence for obstruction. There are no inflammatory changes present. There is no evidence for free air. There is a normal appendix in the right lower quadrant. Bladder: The bladder is mildly distended with no evidence for focal mass, calculus or diverticulum. : There is no evidence for pelvic mass or adenopathy. There is no evidence for pelvic ascites. The patient is status post hysterectomy. Vasculature: There is no evidence for aneurysmal dilatation of the abdominal aorta. Osseous structures: There is no acute osseous pathology. Degenerative changes are seen within the spine. IMPRESSION: 1. CT findings most characteristic of an ileus versus gastroenteritis. No evidence for bowel obstruction. 2. There is also mild to moderate fecal stasis and fecal impaction of the rectos igmoid colon without evidence for obstruction. 3. Bilateral nonobstructing renal calculi are present. 4. 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 5. Additional nonacute findings are delineated above. ACT 112: Negative or not required by law. Electronically signed by: Shekhar Alvarado M.D. 06/13/2022 7:49 PM Code Status & VTE Plan VTE Prophylaxis Plan VTE Prophylaxis will be ordered: Yes PG Care Time/CCT Total # of Minutes Spent Total Time Spent with Patient: Total time spent is greater than 50% in coordination of care (as documented) at patient's floor/unit and/or counseling patient: Coding Level of Care Code 98806 Initial Inpt Care Lvl 3 Diagnoses Left knee pain M25.562 Left shoulder pain M25.512 Diarrhea R19.7 Electrolyte abnormality E87.8 Leukopenia D72.819 Pernicious anemia D51.0 Depression F32.9 Hypothyroidism E03.9 Rheumatoid arthritis, seropositive M05.9 PUD (peptic ulcer disease) K27.9
[2022-06-13 21:02] LABS: Appearance Urine Clear (Clear); Bilirubin Urine Negative (Negative); Blood Urine Negative (Negative); Color Urine Yellow; Glucose Urine UA Negative (Negative); Ketones Urine Negative (Negative); Leukocyte Esterase Urine Negative (Negative); Nitrite Urine Negative (Negative); Protein Urine Negative (Negative); Specific Gravity Urine 1.018 (1.000-1.030); Urobilinogen Urine Negative (Negative)
[2022-06-13] MEDS ORDERED: bisacodyL 10 MG SUPP PR PRN (23:08)
[2022-06-13] MEDS ORDERED: VANCOMYCIN CONSULT ACTIVE PRN (23:08)
[2022-06-13] MEDS ORDERED: ONDANSETRON INJ 2 MG/ML 2 ML VIAL IV PRN (23:08)
[2022-06-13] MEDS ORDERED: MoRPHine SULFATE 2 MG/ML CARP IV PRN (23:08)
[2022-06-13] MEDS ORDERED: ACETAMINOPHEN 325 MG TAB PO PRN (23:08)
[2022-06-13] MEDS ORDERED: DOCUSATE SODIUM 100 MG CAP PO PRN (23:08)
[2022-06-14] MEDS ORDERED: VANCOMYCIN HCL 1,500 MG in SODIUM CHLORIDE 0.9% 500 ML IV ONE
[2022-06-14] MEDS: LACTATED RINGER'S 1,000 ML IV SCH ×2 (00:19→07:56)
[2022-06-14] MEDS: MAGNESIUM SULFATE / D5W 1 GM/100 ML BAG IV SCH ×2 (00:19→01:32)
[2022-06-14] MEDS ORDERED: CEFEPIME 2,000 MG in SYRINGE 0 ML IV SCH (04:00)
[2022-06-14] MEDS: LEVOTHYROXINE SODIUM 75 MCG TABLET PO SCH (05:02)
[2022-06-14 06:00] LABS: Hematocrit (blood only) 35.3 % (34.1-44.9); Hemoglobin 11.4 g/dl (12.0-16.0); Mean Corpuscular Hemoglobin 26.7 pg (25.0-34.0); Mean Corpuscular Hgb Conc 32.3 g/dL (32.0-36.0); Mean Corpuscular Volume 82.7 fL (80.0-100.0); Mean Platelet Volume 10.3 fL (9.4-12.3); Platelet Count 187 K/uL (130-400); RDW Coefficient of Variation 16.9 % (11.5-14.5); RDW Standard Deviation 50.2 fL (36.4-46.3); Red Blood Count 4.27 M/uL (3.93-5.22); White Blood Count 2.46 K/ul (4.8-10.8)
[2022-06-14 06:33] LABS: BUN Creatinine Ratio 18.8 (10-20); C Reactive Protein 17.08 mg/dl (0-0.5); Calcium 7.8 mg/dl (8.5-10.1); Creatinine Clr Calc Pharmacy 121.1 ml/min; Est GFR (African American) 124.4 ml/min; Est GFR (Non-African American) 107.4 ml/min; Magnesium 2.7 mg/dl (1.7-2.4); Potassium 3.7 mmol/L (3.5-5.1); Uric Acid 2.8 mg/dl (2.6-7.2)
[2022-06-14 07:26] LABS: Basophils # (auto) 0.01 K/uL (0-0.2); Basophils % (auto) 0.4 %; Echinocytes 1+; Immature Granulocytes # (auto) 0.02 K/uL (0.00-0.02); Immature Granulocytes % (auto) 0.8 %; Lymphocytes # (auto) 1.25 K/uL (1.2-3.4); Lymphocytes % (auto) 50.8 %; Monocytes % (auto) 8.1 %; Neutrophils # (auto) 0.98 K/uL (1.4-6.5); Neutrophils % (auto) 39.9 %
[2022-06-14] MEDS: ESCITALOPRAM OXALATE 20 MG TAB PO SCH (07:56)
[2022-06-14] MEDS: SENNA 8.6 MG TAB PO SCH (07:56)
[2022-06-14] MEDS: PANTOprazole 40 MG TAB PO SCH (07:56)
[2022-06-14] MEDS ORDERED: OPTIRAY 320 100ml IV ONE (08:25)
--- NOTE | 2022-06-14 08:36 | Pharmacy Report ---
Pharmacy Vanc AUC Short Note - Date of Service June 14, 2022 - Assessment & Plan Assessment 61 year old F started on vancomycin and cefepime for possible joint infection. Patient with hx of RA on methotrexate, gastric bypass surgery, anemia. Blood cultures pending. Procalcitonin elevated on admission. Plan Vancomycin * AUC/HASEEB is the preferred PK/PD target for vancomycin * AUC guided dosing is effective and associated with decreased risk of nephrotoxicity compared to traditional trough targets * Received loading dose of 1500 mg x 1 early this morning, plan to start vancomycin 1000 mg iv q 8 hr * This vancomycin dosing is predicted to achieve a trough level of 18 mcg/mL is predicted to achieve target AUC/HASEEB of 400-600 mg/L.hr and may be associated with a 15 % risk of nephrotoxicity * Plan to obtain a level if continued >48 hrs or sooner if renal function [facility] will continue to follow and will adjust dose/frequency as necessary. Thank you.
[2022-06-14] MEDS: VANCOMYCIN HCL 1,000 MG in SODIUM CHLORIDE 0.9% 250 ML IV SCH ×2 (09:45→16:35)
[2022-06-14] MEDS ORDERED: LIDOCAINE 1% LOCAL 20 ML VIAL ONE (10:34)
[2022-06-14] MEDS ORDERED: LIDOCAINE 1% LOCAL 20 ML VIAL INJ ONE (10:45)
[2022-06-14] MEDS: MoRPHine SULFATE 4 MG/ML 1 ML CARP\\VIAL IV PRN ×2 (10:52→21:20)
--- NOTE | 2022-06-14 10:53 | Orthopedic Consultation ---
Date of Service June 14, 2022 Assessment & Plan (1) Effusion, left knee: -I recommended diagnostic/therapeutic aspiration of her left knee today to rule out septic arthritis vs other etiologies (OA flare, RA flare, gout flare etc.). Aspiration yielded approximately 14 cc of cloudy yellow joint fluid. She had i mprovement of pain and ROM immediately afterwards. -Will send fluid sample to lab for analysis; cell count w/ diff, Gram stain/culture, synovial crystals and synovial Lyme tests ordered. -Can WBAT on left knee, consider PT/OT evaluation if unable to independently ambulate -Ice/elevate prn Dispo: Keep inpatient until synovial labs resulted. Will follow up with synovial fluid results and make further recommendations accordingly. Discussed w/ Dr. Duval Procedure: L knee aspiration. Pt identified and procedure confirmed. Site was marked and prepped with a combination of alcohol and iodine solution. Local anesthetic was administered to aspiration site with 1% lidocaine plain. Knee aspiration was then attempted. Initially there was no return of synovial fluid so 5 cc of sterile NSS was flushed into the knee. Aspiration was attempted again and yielded 14 cc of cloudy yellow joint fluid. No purulence or rolf pus noted. Site was cleaned and dressed w/ gauze and bandaid. Pt tolerated procedure well. History of Present Illness Reason for Consultation: Painful L knee effusion . Requesting Physician: Romy Knutson . Attending Physician: Romy Knutson MD Pt is a 61 y/o/f with PMHx of Rheumatoid Arthritis on Enbrel and recently started on Methotrexate, history of Jorge-en-Y gastric bypass surgery and pernicious anemia who was admitted last night due to a painful L knee effusion. She was in her baseline state of health until about 4 days ago when started having worsening L knee pain and swelling. Initially she was able to bear weight on the knee and was able to go to work with a knee brace. Yesterday the pain became so severe she was unable to put weight on it so she went to ED for evaluation. Work up there showed elevated ESR, CRP, procalcitonin and leukopenia. Non-weightbearing Knee XR showing moderate medial compartment joint space loss without any other significant findings. Bedside US of L knee without discrete fluid collection in ED. Orthopedics consulted for evaluation and management of her painful L knee effusion. Seen at bedside, she states that her knee feels better today. She has had no recent fevers but has had some loss of appetite the last two days which she attributes to her severe knee pain. She does have a history of painful L knee effusions in the past which have been treated both with oral steroids and intra- articular steroid injections which have effectively relieved her pain. She was actually scheduled to see Dr. Ricketts today for the same problem. She denies any current subjective fever, chills, nausea, dizziness/lightheadedness. Allergies Allergy/AdvReac Type Severity Reaction Status Date / Time latex Allergy Intermediate REPORTS Verified 06/13/22 19:02 REACTION IS TO "LATEX TAPE ONLY" - "SKIN BUBBLES UP" hydromorphone [From Dilaudid] AdvReac Intermediate "CRAWLING Verified 06/13/22 19:02 SKIN" Home Medications Medication Instructions Recorded Confirmed Type cyanocobalamin (vitamin B-12) 100 mcg IM MONTHLY 08/09/18 06/13/22 History 1,000 mcg/mL injection kit valacyclovir 500 mg tablet 500 mg PO BID PRN flare up #30 tabs 03/29/20 06/13/22 Rx phenazopyridine 200 mg tablet 200 mg PO TID PRN Pain 05/10/20 06/13/22 History (Pyridium) hydrocodone 7.5 mg-acetaminophen 1 tab PO DIRECTED 05/26/20 06/13/22 History 325 mg tablet levothyroxine 75 mcg tablet 75 mcg PO QAM #90 tabs 06/27/21 06/13/22 Rx (Euthyrox) pantoprazole 40 mg tablet,delayed 40 mg PO DAILY #90 tabs 06/27/21 06/13/22 Rx release ondansetron 4 mg disintegrating 4 mg PO Q8H PRN nausea and 09/12/21 06/13/22 Rx tablet vomiting #20 tabs escitalopram oxalate 20 mg tablet 20 mg PO DAILY 06/13/22 06/13/22 History etanercept 50 mg/mL (1 mL) 0 mg subcut WK 06/13/22 06/13/22 History subcutaneous pen injector (Enbrel SureClick) iron sucrose 100 mg iron/5 mL 300 mg IV .COMPLEX PRN LOW IRON 06/13/22 06/13/22 History intravenous solution (Venofer) LEVELS sumatriptan succinate 50 mg tablet See Rx Instructions PO .COMPLEX 06/13/22 06/13/22 History PRN Migraine Headache Past Med/Surg History Medical History Depression History of GI bleed Iron deficiency anemia Osteoarthritis Pernicious anemia PUD (peptic ulcer disease) Rheumatoid arthritis Surgical History History of carpal tunnel release BL History of colonoscopy History of gastric bypass 2008 weight loss - 100 pounds off History of repair of rotator cuff History of surgery LEFT FOOT PLANTAR FASCIITIS History of total abdominal hysterectomy and bilateral salpingo-oophorectomy History of tubal ligation (08/31/13) Hx of colonoscopy Hx of esophagogastroduodenoscopy Hx of tonsillectomy Previous section (08/31/13) Family History Father Colorectal cancer Other Family history of colon cancer in father No family history of adverse response to anesthesia Denies family history of Ovarian cancer Prostate cancer Myocardial infarction Breast cancer Social History Smoking Status: Never smoker Second Hand Exposure: No; Hx Alcohol Use: No Hx Substance Use: No Preferred Language: [place] Citizen Communication Ability: Effective Hearing Ability: Normal 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 Physical Exam General: Pleasant 61 y/o/f resting in bed comfortably in NAD. Not acutely ill appearing. AAO x 4 Left knee: She has a moderate sized left knee effusion. The knee has mild global tenderness. She has guarded passive and active ROM. ROM is about 5-70 degrees with severe pain at terminal ends of motion. Distally NVI. No erythema surrounding the knee. Results & Data Results & Data Laboratory Results Reviewed . Diagnostic Findings Reviewed . PG Care Time/CCT Total # of Minutes Spent Total Time Spent with Patient: Total time spent is greater than 50% in coordination of care (as documented) at patient's floor/unit and/or counseling patient: Coding Level of Care Code 50111 Inpt Consult Level 4 Diagnoses Effusion, left knee M25.462
--- NOTE | 2022-06-14 10:56 | CT Scan Report ---
CT knee LT w con HISTORY: Left knee swelling, tenderness TECHNIQUE: Multiaxial CT images of the left knee were performed following the intravenous administrat ion of 94 cc of Optiray 320. Sagittal and coronal reformations also obtained. COMPARISON STUDY: Left knee radiograph 06/13/2022. FINDINGS: No fracture or dislocation within the left knee. There is mild cartilage space narrowing wi thin the medial compartment of the left knee with mild subchondral sclerosis and tiny marginal osteop hytes. This is consistent with mild osteoarthritis. No erosive changes identified within the knee. Th ere is mild diffuse thickening and enhancement within the synovial lining of the knee with a small le ft knee effusion. A small popliteal cyst. There is mild surrounding subcutaneous edema and fat strand ing.. IMPRESSION: 1. Mild diffuse thickening and enhancement within the synovial lining of the left knee with a small l eft knee effusion. This consistent with a nonspecific synovitis and could be related to infectious or inflammatory process. 2. No fracture or dislocation within the left knee. ACT 112: Negative or not required by law. Electronically signed by: Tani Corcoran M.D. 06/14/2022 10:55 AM
--- NOTE | 2022-06-14 11:35 | Hospitalist Progress Note ---
Date of Service June 14, 2022 Assessment & Plan (1) Left knee pain: Plan: 61yo female with history of RA on Enbrel injection as well as methotrexate (Per Rheumatology note from 05/01/22 - patient on MTX 15mg weekly and folic acid) presenting with 2-3 days of progressive swelling and pain in her left knee as well as acute pain in her left shoulder. Patient with chills at home as well as 2 episodes of diarrhea. Tachycardic on arrival. Labs are significant for elevation of ESR=50, CRP=9.19 as well as Procalcitonin of 2.6. She is leukopenic with WBC=2.46 with lymphopenia and neutropenia as well. Ddx to include: flare of RA, septic joint/infection vs crystal arthropathy. No obvious fluid collection noted by ER attending on bedside ultrasound. Patient has received Toradol, Solumedrol as well as antibiotics - Daptomycin and Cefepime on admission Pain has improved with the above interventions and with joint arthrocentesis by orthopedics on 06/14 WBC count on joint fluid is just under 20,000 but this could be falsely low due to her leukopenia as per orthopedics There are no joint crystals and uric acid level is normal, CK just above normal Gram stain and culture are pending She is immunosuppressed Lyme disease in the serum is negative but will change cefepime to ceftriaxone and continue on vancomycin CT knee with effusion and synovial thickening, no fractures Appreciate orthopedics consultation ESR down to 40 but CRP up to 17, procalcitonin remains elevated at 2.68, remains neutropenic No fevers -Hold Methotrexate for now until infection is ruled out -Hold Enbrel for now -Follow ESR, CRP and Procalcitonin in AM -Continue empiric antibiotics with Vancomycin and changed to ceftriaxone -Continue pain control with Morphine PRN -Awaiting cultures to see if needs surgical intervention -Also with left shoulder pain-unclear if this is a separate issue or all related -Follow blood cultures-no growth to date (2) Left shoulder pain: Plan: Pain with palpation of left subacromial bursa region with limited mobility. No trauma. X-ray shoulder with no bony abnormality With evidence of impingement on examination This is acute Appreciate orthopedics consultation (3) Diarrhea: Plan: Patient reports two episodes of watery diarrhea prior to arrival. CT of the abdomen obtained in the ER suggestive of possible gastroenteritis as well as presence of moderate fecal stasis -Stool PCR panel ordered -Senna qAM -Colace, Dulcolax PRN (4) Electrolyte abnormality: Plan: Patient with several electrolyte abnormalities to include hypokalemia with K=2.8, hypomagnesemia with Mg=1.4 and hypophosphatemia with PO4=1.2. Calcium is slightly low at 8.3 but appropriately corrects for Albumin of 3. Has been given 1gm of Mg as well as 20mEq of KCl and KPhos 9 mmol in ER thus far. ?Diarrheal losses - patient only with 2 episodes of diarrhea prior to arrival. ?Poor intake. Electrolytes all replaced and now resolved (5) Leukopenia: Plan: Patient with leukopenia - WBC=2.46 with neutropenia and lymphopenia. Possibly secondary to methotrexate use. ?infectious source. Lyme is NEGATIVE as is Covid-19 testing. Anaplasmosis and babesia have been sent -Followup on Anaplasmosis and Babesia labs -Holding methotrexate as above -CBC in AM -B12 level quite low at 112-replaced (6) Pernicious anemia: Plan: History of pernicious anemia. H/H stable B12 level quite low at 112 Give B12 1000 mcg IM daily x3 doses (7) Depression: Plan: Chronic. Stable -Continue Escitalopram (8) Hypothyroidism: Plan: Chronic. TSH here normal -Continue Synthroid 75mcg po daily (9) Rheumatoid arthritis, seropositive: Plan: Patient with Rheumatoid arthritis. She is presently on Enbrel injections q weekly which she administers on . She was recently started on Methotrexate on 05/01/22 by Rheumatology. -Hold MTX and Enbrel for now due to possible infection (10) PUD (peptic ulcer disease): Plan: Chronic. Stable on medication -Continue Protonix 40mg po daily Plan Disposition-continued stay Admission and Anticipated Discharge Date Admission Date: June 13, 2022 Subjective Patient reports pain in her left shoulder and left knee are improved since admission. The arthrocentesis she had performed by orthopedics earlier today also significantly improved her pain. She is still not able to raise her left arm above the level of the shoulder or bend her knee further than 90 degrees. She is been having chills at home but no fevers documented so far here. She denies any other new joint pains. She has chronic pain from her rheumatoid arthritis mostly in her wrists and does not feel that starting on Enbrel a few months ago has helped her. 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 Review of Systems Review of Systems: All systems reviewed & are unremarkable except as noted in HPI & below Denies chest pain or shortness of breath, no headaches or lightheadedness, no abdominal pain or nausea, no diarrhea or constipation, no urinary issues. Physical Exam Constitutional: WD/WN, vitals as above Eyes: PERRL, conjunctivae normal, anicteric sclerae Neck: trachea midline, no thyromegaly Respiratory: normal respiratory effort, lungs clear to auscultation Cardiovascular: RRR, no murmur, no edema Chest (Breasts): Chest: normal inspection of chest Gastrointestinal (Abdomen): normal bowel sounds, soft, nontender, no hepatosplenomegaly Musculoskeletal: Extremities: + extremities abnormal to inspection (With joint enlargement of bilateral wrists), no cyanosis and no clubbing Shoulder: + limited ROM (Left passive and active ROM 0-90 abduction), + joint line tenderness (Left TTP posterior shoulder) and + Hawkin's test positive (On left); shoulder normal to inspection, no effusion and no skin erythema Knee: + effusion, + limited ROM of knee (0 to 90 degrees of flexion on left) and + joint line tenderness (Especially medial joint line); no skin erythema and no ecchymosis Skin: no rashes, warm and dry Neurologic: moves all extremities and awake; no focal motor deficits Psychiatric: A+Ox3, euthymic affect Lymphatic: no lymphedema Results & Data Results & Data ([facility]) Vital Signs (Past 12 Hours) Vital Signs Temp Pulse Resp BP Pulse Ox O2 Del Method 06/14/22 07:37 36.6 C 60 16 104/71 96 Room Air 06/14/22 02:30 Room Air 06/14/22 02:30 36.4 C L 55 L 16 98/62 L 97 Room Air 06/14/22 00:01 61 16 96 Room Air Laboratory Results 06/14/22 06/14/22 06/14/22 Range/Units 05:31 05:31 05:31 WBC (4.8-10.8) K/ul RBC (3.93-5.22) M/uL Hgb (12.0-16.0) g/dl Hct (34.1-44.9) % MCV (80.0-100.0) fL MCH (25.0-34.0) pg MCHC (32.0-36.0) g/dL RDW Std Deviation (36.4-46.3) fL RDW Coeff of Will (11.5-14.5) % Plt Count (130-400) K/uL MPV (9.4-12.3) fL Immature Gran % (Auto) % Neut % (Auto) % Lymph % (Auto) % [place] % (Auto) % Eos % (Auto) % Baso % (Auto) % Neut # (Auto) (1.4-6.5) K/uL Lymph # (Auto) (1.2-3.4) K/uL [place] # (Auto) (0.24-0.82) K/uL Eos # (Auto) (0-0.50) K/uL Baso # (Auto) (0-0.2) K/uL Immature Gran # (Auto) (0.00-0.02) K/uL Echinocytes ESR (0-30) mm/hr PT (9.0-12.0) Seconds INR (0.9-1.1) APTT (21.0-31.0) Seconds PTT Ratio Sodium (136-145) mmol/L Potassium (3.5-5.1) mmol/L Chloride (98-107) mmol/L Carbon Dioxide (21-32) mmol/L Anion Gap (3-11) BUN (6-23) mg/dl Creatinine (0.6-1.2) mg/dl Est Cr Clr Drug Dosing ml/min Est GFR ( Amer) ml/min Est GFR (Non-Af Amer) ml/min BUN/Creatinine Ratio (10-20) Glucose (70-99(Fasting)) mg/dl Lactate (0.4-2.0) mmol/L Uric Acid (2.6-7.2) mg/dl Calcium (8.5-10.1) mg/dl Phosphorus (2.5-4.9) mg/dl Magnesium (1.7-2.4) mg/dl Total Bilirubin (0.2-1.0) mg/dl AST (13-39) U/L ALT (7-52) U/L Alkaline Phosphatase (34-104) U/L Total Creatine Kinase (26-192) U/L C-Reactive Protein (0-0.5) mg/dl Total Protein (6.0-8.3) gm/dl Albumin (3.4-5.0) gm/dl Globulin (2.5-4.0) gm/dl Albumin/Globulin Ratio (0.9-2) Vitamin B12 112 L (180-914) pg/ml Procalcitonin 2.68 H (0-0.5) ng/ml TSH 0.373 (0.300-4.500) uIu/ml Urine Color Urine Appearance (Clear) Urine pH (4.5-7.5) Ur Specific [place] (1.000-1.030) Urine Protein (Negative) Urine Glucose (UA) (Negative) Urine Ketones (Negative) Urine Blood (Negative) Urine Nitrite (Negative) Urine Bilirubin (Negative) Urine Urobilinogen (Negative) Ur Leukocyte Esterase (Negative) Anaplasma Smear A. phagocytophilum DNA Babesia Smear Babesia microti DNA PCR Lyme Disease IgG Ab (Negative) Lyme Disease IgM Ab (Negative) SARS-CoV-2, RNA, NAAT (NEGATIVE) 06/14/22 06/14/22 06/14/22 Range/Units 05:31 05:31 05:31 WBC 2.46 L (4.8-10.8) K/ul RBC 4.27 (3.93-5.22) M/uL Hgb 11.4 L (12.0-16.0) g/dl Hct 35.3 (34.1-44.9) % MCV 82.7 (80.0-100.0) fL MCH 26.7 (25.0-34.0) pg MCHC 32.3 (32.0-36.0) g/dL RDW Std Deviation 50.2 H (36.4-46.3) fL RDW Coeff of Will 16.9 H (11.5-14.5) % Plt Count 187 (130-400) K/uL MPV 10.3 (9.4-12.3) fL Immature Gran % (Auto) 0.8 % Neut % (Auto) 39.9 % Lymph % (Auto) 50.8 % [place] % (Auto) 8.1 % Eos % (Auto) 0.0 % Baso % (Auto) 0.4 % Neut # (Auto) 0.98 L* (1.4-6.5) K/uL Lymph # (Auto) 1.25 (1.2-3.4) K/uL [place] # (Auto) 0.20 L (0.24-0.82) K/uL Eos # (Auto) 0.00 (0-0.50) K/uL Baso # (Auto) 0.01 (0-0.2) K/uL Immature Gran # (Auto) 0.02 (0.00-0.02) K/uL Echinocytes 1+ ESR 40 H (0-30) mm/hr PT (9.0-12.0) Seconds INR (0.9-1.1) APTT (21.0-31.0) Seconds PTT Ratio Sodium 139 (136-145) mmol/L Potassium 3.7 D (3.5-5.1) mmol/L Chloride 111 H (98-107) mmol/L Carbon Dioxide 21 (21-32) mmol/L Anion Gap 7 (3-11) BUN 9 (6-23) mg/dl Creatinine 0.48 L (0.6-1.2) mg/dl Est Cr Clr Drug Dosing 121.1 ml/min Est GFR ( Amer) 124.4 ml/min Est GFR (Non-Af Amer) 107.4 ml/min BUN/Creatinine Ratio 18.8 (10-20) Glucose 169 H (70-99(Fasting)) mg/dl Lactate (0.4-2.0) mmol/L Uric Acid 2.8 (2.6-7.2) mg/dl Calcium 7.8 L (8.5-10.1) mg/dl Phosphorus 3.0 D (2.5-4.9) mg/dl Magnesium 2.7 H (1.7-2.4) mg/dl Total Bilirubin (0.2-1.0) mg/dl AST (13-39) U/L ALT (7-52) U/L Alkaline Phosphatase (34-104) U/L Total Creatine Kinase (26-192) U/L C-Reactive Protein 17.08 H (0-0.5) mg/dl Total Protein (6.0-8.3) gm/dl Albumin (3.4-5.0) gm/dl Globulin (2.5-4.0) gm/dl Albumin/Globulin Ratio (0.9-2) Vitamin B12 (180-914) pg/ml Procalcitonin (0-0.5) ng/ml TSH (0.300-4.500) uIu/ml Urine Color Urine Appearance (Clear) Urine pH (4.5-7.5) Ur Specific [place] (1.000-1.030) Urine Protein (Negative) Urine Glucose (UA) (Negative) Urine Ketones (Negative) Urine Blood (Negative) Urine Nitrite (Negative) Urine Bilirubin (Negative) Urine Urobilinogen (Negative) Ur Leukocyte Esterase (Negative) Anaplasma Smear A. phagocytophilum DNA Babesia Smear Babesia microti DNA PCR Lyme Disease IgG Ab (Negative) Lyme Disease IgM Ab (Negative) SARS-CoV-2, RNA, NAAT (NEGATIVE) 06/13/22 06/13/22 06/13/22 Range/Units 20:43 20:40 20:40 WBC (4.8-10.8) K/ul RBC (3.93-5.22) M/uL Hgb (12.0-16.0) g/dl Hct (34.1-44.9) % MCV (80.0-100.0) fL MCH (25.0-34.0) pg MCHC (32.0-36.0) g/dL RDW Std Deviation (36.4-46.3) fL RDW Coeff of Will (11.5-14.5) % Plt Count (130-400) K/uL MPV (9.4-12.3) fL Immature Gran % (Auto) % Neut % (Auto) % Lymph % (Auto) % [place] % (Auto) % Eos % (Auto) % Baso % (Auto) % Neut # (Auto) (1.4-6.5) K/uL Lymph # (Auto) (1.2-3.4) K/uL [place] # (Auto) (0.24-0.82) K/uL Eos # (Auto) (0-0.50) K/uL Baso # (Auto) (0-0.2) K/uL Immature Gran # (Auto) (0.00-0.02) K/uL Echinocytes ESR (0-30) mm/hr PT (9.0-12.0) Seconds INR (0.9-1.1) APTT (21.0-31.0) Seconds PTT Ratio Sodium (136-145) mmol/L Potassium (3.5-5.1) mmol/L Chloride (98-107) mmol/L Carbon Dioxide (21-32) mmol/L Anion Gap (3-11) BUN (6-23) mg/dl Creatinine (0.6-1.2) mg/dl Est Cr Clr Drug Dosing ml/min Est GFR ( Amer) ml/min Est GFR (Non-Af Amer) ml/min BUN/Creatinine Ratio (10-20) Glucose (70-99(Fasting)) mg/dl Lactate (0.4-2.0) mmol/L Uric Acid (2.6-7.2) mg/dl Calcium (8.5-10.1) mg/dl Phosphorus (2.5-4.9) mg/dl Magnesium (1.7-2.4) mg/dl Total Bilirubin (0.2-1.0) mg/dl AST (13-39) U/L ALT (7-52) U/L Alkaline Phosphatase (34-104) U/L Total Creatine Kinase (26-192) U/L C-Reactive Protein (0-0.5) mg/dl Total Protein (6.0-8.3) gm/dl Albumin (3.4-5.0) gm/dl Globulin (2.5-4.0) gm/dl Albumin/Globulin Ratio (0.9-2) Vitamin B12 (180-914) pg/ml Procalcitonin (0-0.5) ng/ml TSH (0.300-4.500) uIu/ml Urine Color Yellow Urine Appearance Clear (Clear) Urine pH 6.0 (4.5-7.5) Ur Specific [place] 1.018 (1.000-1.030) Urine Protein Negative (Negative) Urine Glucose (UA) Negative (Negative) Urine Ketones Negative (Negative) Urine Blood Negative (Negative) Urine Nitrite Negative (Negative) Urine Bilirubin Negative (Negative) Urine Urobilinogen Negative (Negative) Ur Leukocyte Esterase Negative (Negative) Anaplasma Smear A. phagocytophilum DNA Pending Babesia Smear Babesia microti DNA PCR Pending Lyme Disease IgG Ab (Negative) Lyme Disease IgM Ab (Negative) SARS-CoV-2, RNA, NAAT (NEGATIVE) 06/13/22 06/13/22 06/13/22 Range/Units 18:16 18:05 17:58 WBC (4.8-10.8) K/ul RBC (3.93-5.22) M/uL Hgb (12.0-16.0) g/dl Hct (34.1-44.9) % MCV (80.0-100.0) fL MCH (25.0-34.0) pg MCHC (32.0-36.0) g/dL RDW Std Deviation (36.4-46.3) fL RDW Coeff of Will (11.5-14.5) % Plt Count (130-400) K/uL MPV (9.4-12.3) fL Immature Gran % (Auto) % Neut % (Auto) % Lymph % (Auto) % [place] % (Auto) % Eos % (Auto) % Baso % (Auto) % Neut # (Auto) (1.4-6.5) K/uL Lymph # (Auto) (1.2-3.4) K/uL [place] # (Auto) (0.24-0.82) K/uL Eos # (Auto) (0-0.50) K/uL Baso # (Auto) (0-0.2) K/uL Immature Gran # (Auto) (0.00-0.02) K/uL Echinocytes ESR (0-30) mm/hr PT (9.0-12.0) Seconds INR (0.9-1.1) APTT (21.0-31.0) Seconds PTT Ratio Sodium (136-145) mmol/L Potassium (3.5-5.1) mmol/L Chloride (98-107) mmol/L Carbon Dioxide (21-32) mmol/L Anion Gap (3-11) BUN (6-23) mg/dl Creatinine (0.6-1.2) mg/dl Est Cr Clr Drug Dosing ml/min Est GFR ( Amer) ml/min Est GFR (Non-Af Amer) ml/min BUN/Creatinine Ratio (10-20) Glucose (70-99(Fasting)) mg/dl Lactate 0.7 (0.4-2.0) mmol/L Uric Acid (2.6-7.2) mg/dl Calcium (8.5-10.1) mg/dl Phosphorus (2.5-4.9) mg/dl Magnesium (1.7-2.4) mg/dl Total Bilirubin (0.2-1.0) mg/dl AST (13-39) U/L ALT (7-52) U/L Alkaline Phosphatase (34-104) U/L Total Creatine Kinase (26-192) U/L C-Reactive Protein (0-0.5) mg/dl Total Protein (6.0-8.3) gm/dl Albumin (3.4-5.0) gm/dl Globulin (2.5-4.0) gm/dl Albumin/Globulin Ratio (0.9-2) Vitamin B12 (180-914) pg/ml Procalcitonin 2.61 H (0-0.5) ng/ml TSH (0.300-4.500) uIu/ml Urine Color Urine Appearance (Clear) Urine pH (4.5-7.5) Ur Specific [place] (1.000-1.030) Urine Protein (Negative) Urine Glucose (UA) (Negative) Urine Ketones (Negative) Urine Blood (Negative) Urine Nitrite (Negative) Urine Bilirubin (Negative) Urine Urobilinogen (Negative) Ur Leukocyte Esterase (Negative) Anaplasma Smear A. phagocytophilum DNA Babesia Smear Babesia microti DNA PCR Lyme Disease IgG Ab Negative (Negative) Lyme Disease IgM Ab Negative (Negative) SARS-CoV-2, RNA, NAAT NEGATIVE (NEGATIVE) 06/13/22 06/13/22 06/13/22 Range/Units 17:58 17:58 17:58 WBC (4.8-10.8) K/ul RBC (3.93-5.22) M/uL Hgb (12.0-16.0) g/dl Hct (34.1-44.9) % MCV (80.0-100.0) fL MCH (25.0-34.0) pg MCHC (32.0-36.0) g/dL RDW Std Deviation (36.4-46.3) fL RDW Coeff of Will (11.5-14.5) % Plt Count (130-400) K/uL MPV (9.4-12.3) fL Immature Gran % (Auto) % Neut % (Auto) % Lymph % (Auto) % [place] % (Auto) % Eos % (Auto) % Baso % (Auto) % Neut # (Auto) (1.4-6.5) K/uL Lymph # (Auto) (1.2-3.4) K/uL [place] # (Auto) (0.24-0.82) K/uL Eos # (Auto) (0-0.50) K/uL Baso # (Auto) (0-0.2) K/uL Immature Gran # (Auto) (0.00-0.02) K/uL Echinocytes ESR 50 H (0-30) mm/hr PT 12.4 H (9.0-12.0) Seconds INR 1.2 H (0.9-1.1) APTT 28.8 (21.0-31.0) Seconds PTT Ratio 1.0 Sodium 132 L (136-145) mmol/L Potassium 2.8 L (3.5-5.1) mmol/L Chloride 99 (98-107) mmol/L Carbon Dioxide 23 (21-32) mmol/L Anion Gap 10 (3-11) BUN 11 (6-23) mg/dl Creatinine 0.63 (0.6-1.2) mg/dl Est Cr Clr Drug Dosing 93.5 ml/min Est GFR ( Amer) 113.8 ml/min Est GFR (Non-Af Amer) 98.2 ml/min BUN/Creatinine Ratio 17.5 (10-20) Glucose 153 H (70-99(Fasting)) mg/dl Lactate (0.4-2.0) mmol/L Uric Acid 3.6 (2.6-7.2) mg/dl Calcium 8.3 L (8.5-10.1) mg/dl Phosphorus 1.2 L* (2.5-4.9) mg/dl Magnesium 1.4 L (1.7-2.4) mg/dl Total Bilirubin 1.0 (0.2-1.0) mg/dl AST 19 (13-39) U/L ALT 11 (7-52) U/L Alkaline Phosphatase 64 (34-104) U/L Total Creatine Kinase 232 H (26-192) U/L C-Reactive Protein 9.19 H (0-0.5) mg/dl Total Protein 6.4 (6.0-8.3) gm/dl Albumin 3.1 L (3.4-5.0) gm/dl Globulin 3.3 (2.5-4.0) gm/dl Albumin/Globulin Ratio 0.9 (0.9-2) Vitamin B12 (180-914) pg/ml Procalcitonin (0-0.5) ng/ml TSH (0.300-4.500) uIu/ml Urine Color Urine Appearance (Clear) Urine pH (4.5-7.5) Ur Specific [place] (1.000-1.030) Urine Protein (Negative) Urine Glucose (UA) (Negative) Urine Ketones (Negative) Urine Blood (Negative) Urine Nitrite (Negative) Urine Bilirubin (Negative) Urine Urobilinogen (Negative) Ur Leukocyte Esterase (Negative) Anaplasma Smear A. phagocytophilum DNA Babesia Smear Babesia microti DNA PCR Lyme Disease IgG Ab (Negative) Lyme Disease IgM Ab (Negative) SARS-CoV-2, RNA, NAAT (NEGATIVE) 06/13/22 Range/Units 17:58 WBC 2.46 L (4.8-10.8) K/ul RBC 4.45 (3.93-5.22) M/uL Hgb 12.0 (12.0-16.0) g/dl Hct 36.0 (34.1-44.9) % MCV 80.9 (80.0-100.0) fL MCH 27.0 (25.0-34.0) pg MCHC 33.3 (32.0-36.0) g/dL RDW Std Deviation 48.7 H (36.4-46.3) fL RDW Coeff of Will 16.7 H (11.5-14.5) % Plt Count 191 (130-400) K/uL MPV 10.0 (9.4-12.3) fL Immature Gran % (Auto) 1.2 % Neut % (Auto) 24.8 % Lymph % (Auto) 47.6 % [place] % (Auto) 26.0 % Eos % (Auto) 0.0 % Baso % (Auto) 0.4 % Neut # (Auto) 0.61 L* (1.4-6.5) K/uL Lymph # (Auto) 1.17 L (1.2-3.4) K/uL [place] # (Auto) 0.64 (0.24-0.82) K/uL Eos # (Auto) 0.00 (0-0.50) K/uL Baso # (Auto) 0.01 (0-0.2) K/uL Immature Gran # (Auto) 0.03 H (0.00-0.02) K/uL Echinocytes ESR (0-30) mm/hr PT (9.0-12.0) Seconds INR (0.9-1.1) APTT (21.0-31.0) Seconds PTT Ratio Sodium (136-145) mmol/L Potassium (3.5-5.1) mmol/L Chloride (98-107) mmol/L Carbon Dioxide (21-32) mmol/L Anion Gap (3-11) BUN (6-23) mg/dl Creatinine (0.6-1.2) mg/dl Est Cr Clr Drug Dosing ml/min Est GFR ( Amer) ml/min Est GFR (Non-Af Amer) ml/min BUN/Creatinine Ratio (10-20) Glucose (70-99(Fasting)) mg/dl Lactate (0.4-2.0) mmol/L Uric Acid (2.6-7.2) mg/dl Calcium (8.5-10.1) mg/dl Phosphorus (2.5-4.9) mg/dl Magnesium (1.7-2.4) mg/dl Total Bilirubin (0.2-1.0) mg/dl AST (13-39) U/L ALT (7-52) U/L Alkaline Phosphatase (34-104) U/L Total Creatine Kinase (26-192) U/L C-Reactive Protein (0-0.5) mg/dl Total Protein (6.0-8.3) gm/dl Albumin (3.4-5.0) gm/dl Globulin (2.5-4.0) gm/dl Albumin/Globulin Ratio (0.9-2) Vitamin B12 (180-914) pg/ml Procalcitonin (0-0.5) ng/ml TSH (0.300-4.500) uIu/ml Urine Color Urine Appearance (Clear) Urine pH (4.5-7.5) Ur Specific [place] (1.000-1.030) Urine Protein (Negative) Urine Glucose (UA) (Negative) Urine Ketones (Negative) Urine Blood (Negative) Urine Nitrite (Negative) Urine Bilirubin (Negative) Urine Urobilinogen (Negative) Ur Leukocyte Esterase (Negative) Anaplasma Smear See Comment A. phagocytophilum DNA Babesia Smear See Comment Babesia microti DNA PCR Lyme Disease IgG Ab (Negative) Lyme Disease IgM Ab (Negative) SARS-CoV-2, RNA, NAAT (NEGATIVE) Diagnostic Findings Chest X-Ray 06/13/22 17:52 XR chest 1V portable CLINICAL HISTORY: SEPSIS. COMPARISON STUDY: No previous studies for comparison. TECHNIQUE: 1 view of the chest FINDINGS: Single frontal view of the chest demonstrates the cardiomediastinal silhouette to be within normal limits. The lungs are clear of alveolar opacities. There is no evidence for pleural effusion. There is no evidence for vascular congestion. There is no acute osseous pathology. IMPRESSION: 1. No acute cardiopulmonary disease. ACT 112: Negative or not required by law. Electronically signed by: Shekhar Alvarado M.D. 06/13/2022 6:34 PM Knee X-Ray 06/13/22 17:52 XR knee LT 3V CLINICAL HISTORY: Pain. Reported history of rheumatoid arthritis. COMPARISON STUDY: No previous studies for comparison. TECHNIQUE: 4 left knee views FINDINGS: Bones: There is no evidence for an acute fracture or dislocation. There is no lytic or blastic lesion. Joints: The joint spaces are maintained. There is no evidence for an erosive arthropathy. There is no evidence for an intra-articular effusion. The bones are in anatomic alignment. Soft tissues: There is no focal soft tissue abnormality. There is no radiopaque foreign body. IMPRESSION: 1. No acute osseous pathology. 2. No evidence for an erosive arthropathy. ACT 112: Negative or not required by law. Electronically signed by: Shekhar Alvarado M.D. 06/13/2022 6:37 PM Shoulder X-Ray 06/13/22 17:52 XR shoulder LT min 2V routine CLINICAL HISTORY: Shoulder pain. History of rheumatoid arthritis.. COMPARISON STUDY: No previous studies for comparison. TECHNIQUE: 3 left shoulder views FINDINGS: Bones: The bones are osteopenic. There is no evidence for an acute fracture or dislocation. There is no lytic or blastic lesion. Joints: The joint spaces are maintained. There is no evidence for an erosive arthropathy. The bones are in anatomic alignment. Soft tissues: There is no focal soft tissue abnormality. There is no radiopaque foreign body. IMPRESSION: 1. No acute osseous pathology. 2. Osteopenia with no evidence for erosive arthropathy. ACT 112: Negative or not required by law. Electronically signed by: Shekhar Alvarado M.D. 06/13/2022 6:36 PM Abdomen/Pelvis CT 06/13/22 19:00 CT abd pelvis IV con only CLINICAL HISTORY: diarrhea, neutropenia, ?sepsis COMPARISON STUDY: 05/26/2020 CT DOSE: 404.15 mGy.cm TECHNIQUE: Standard CT of the Abdomen and Pelvis was performed with IV contrast. A dose lowering technique was utilized adhering to the principles of ALARA. Contrast Volume: Optiray 320, 94 ml. The patient did not receive oral contrast. FINDINGS: Lung base: The lung bases are clear. Abdominal cavity: There is no evidence for abdominal mass, adenopathy or ascites. Liver: There is homogeneous attenuation of the liver parenchyma. There is no evidence for enhancing mass lesion. Spleen: There is homogeneous attenuation of the splenic parenchyma. There is no enhancing mass lesion. Pancreas: There is homogeneous attenuation of the pancreatic parenchyma. There is no evidence for mass lesion or peripancreatic fluid collection. Gall Bladder: The gallbladder is well distended with no evidence for intraluminal calculi, wall thickening or pericholecystic edema. Adrenal glands: The adrenal glands are normal in size and attenuation. There is no evidence for enhancing mass lesion. Kidneys: Compared to the previous examination, the kidneys are homogeneous in attenuation bilaterally. Previously identified left UPJ calculus is no longer seen. There is a 2 mm nonobstructing left renal calculus present. There are now 2, 4 mm nonobstructing right renal calculi. There is no evidence for hydronephrosis bilaterally. There are no gross renal masses. Bowel: The patient is again status post previous Jorge-en-Y gastric surgery. Fluid-filled loops of both large and small bowel are seen throughout the abdomen and pelvis without evidence for disproportionate dilatation or obstruction. The findings are most characteristic of an ileus versus gastroenteritis. Additionally, there is mild to moderate fecal stasis and fecal impaction of the rectosigmoid colon without evidence for obstruction. There are no inflammatory changes present. There is no evidence for free air. There is a normal appendix in the right lower quadrant. Bladder: The bladder is mildly distended with no evidence for focal mass, calculus or diverticulum. : There is no evidence for pelvic mass or adenopathy. There is no evidence for pelvic ascites. The patient is status post hysterectomy. Vasculature: There is no evidence for aneurysmal dilatation of the abdominal aorta. Osseous structures: There is no acute osseous pathology. Degenerative changes are seen within the spine. IMPRESSION: 1. CT findings most characteristic of an ileus versus gastroenteritis. No evidence for bowel obstruction. 2. There is also mild to moderate fecal stasis and fecal impaction of the rectosigmoid colon without evidence for obstruction. 3. Bilateral nonobstructing renal calculi are present. 4. 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 5. Additional nonacute findings are delineated above. ACT 112: Negative or not required by law. Electronically signed by: Shekhar Alvarado M.D. 06/13/2022 7:[address] 06/13/22 23:08 CT knee LT w con HISTORY: Left knee swelling, tenderness TECHNIQUE: Multiaxial CT images of the left knee were performed following the intravenous administration of 94 cc of Optiray 320. Sagittal and coronal reformations also obtained. COMPARISON STUDY: Left knee radiograph 06/13/2022. FINDINGS: No fracture or dislocation within the left knee. There is mild cartilage space narrowing within the medial compartment of the left knee with mild subchondral sclerosis and tiny marginal osteophytes. This is consistent with mild osteoarthritis. No erosive changes identified within the knee. There is mild diffuse thickening and enhancement within the synovial lining of the knee with a small left knee effusion. A small popliteal cyst. There is mild surrounding subcutaneous edema and fat stranding.. IMPRESSION: 1. Mild diffuse thickening and enhancement within the synovial lining of the left knee with a small left knee effusion. This consistent with a nonspecific synovitis and could be related to infectious or inflammatory process. 2. No fracture or dislocation within the left knee. ACT 112: Negative or not required by law. Electronically signed by: Tani Corcoran M.D. 06/14/2022 10:55 AM PG Care Time/CCT Total # of Minutes Spent Total Time Spent with Patient: Total time spent is greater than 50% in coordination of care (as documented) at patient's floor/unit and/or counseling patient: Coding Level of Care Code 74270 Subseq Hosp Care Lvl 3 Diagnoses Left knee pain M25.562 Left shoulder pain M25.512 Diarrhea R19.7 Electrolyte abnormality E87.8 Leukopenia D72.819 Pernicious anemia D51.0 Depression F32.9 Hypothyroidism E03.9 Rheumatoid arthritis, seropositive M05.9 PUD (peptic ulcer disease) K27.9
[2022-06-14] MEDS: cefTRIAXone SODIUM 1,000 MG in DEXTROSE 5% 50 ML IV SCH (11:42)
[2022-06-14] MEDS: CYANOCOBALAMIN 1000 MCG/ML VIAL IM SCH (12:28)
[2022-06-14 13:09] LABS: Appearance Synovial Fluid Cloudy; Color Synovial Fluid Straw; Mononuclear WBC Synovial 25.3 %; Polynuclear WBC Synovial 74.7 %; RBC Synovial Fluid (A) 5000 /uL; Source Synovial Fluid KNEE; WBC Synovial Fluid (A) 19685 /ul (0-200)
--- NOTE | 2022-06-14 13:50 | Electrocardiogram Report ---
Test Reason : Blood Pressure : / mmHG Vent. Rate : 113 BPM Atrial Rate : 113 BPM P-R Int : 156 ms QRS Dur : 100 ms QT Int : 328 ms P-R-T Axes : 067 017 028 degrees QTc Int : 449 ms Sinus tachycardia Possible Left atrial enlargement Incomplete right bundle branch block Borderline ECG When compared with ECG of 02-DEC-2020 10:00, Vent. rate has increased BY 59 BPM Confirmed by Morgan Tinoco ([id number]) on 06/14/2022 1:50:20 PM Referred By: REFERRED SELF Confirmed By:Morgan Tinoco
[2022-06-14] MEDS ORDERED: POTASSIUM PHOS 3 MMOL/1 ML INFUSION IV ONE (23:00)
[2022-06-15] MEDS: VANCOMYCIN HCL 1,000 MG in SODIUM CHLORIDE 0.9% 250 ML IV SCH ×2 (00:55→10:15)
[2022-06-15] MEDS: MoRPHine SULFATE 4 MG/ML 1 ML CARP\\VIAL IV PRN (05:39)
[2022-06-15] MEDS: LEVOTHYROXINE SODIUM 75 MCG TABLET PO SCH (06:11)
[2022-06-15] MEDS ORDERED: VANCOMYCIN LEVEL ONE (08:30)
[2022-06-15 08:41] LABS: Hematocrit (blood only) 34.2 % (34.1-44.9); Hemoglobin 10.9 g/dl (12.0-16.0); Mean Corpuscular Hemoglobin 26.6 pg (25.0-34.0); Mean Corpuscular Hgb Conc 31.9 g/dL (32.0-36.0); Mean Corpuscular Volume 83.4 fL (80.0-100.0); Mean Platelet Volume 10.2 fL (9.4-12.3); Platelet Count 181 K/uL (130-400); RDW Coefficient of Variation 17.7 % (11.5-14.5); RDW Standard Deviation 53.1 fL (36.4-46.3); White Blood Count 3.39 K/ul (4.8-10.8)
--- NOTE | 2022-06-15 09:15 | Orthopedic Progress Note ---
Date of Service June 15, 2022 Assessment & Plan (1) Effusion, left knee: (2) Neutropenia: Plan Aspiration results very encouraging. Monitor symptoms. If culture negative at 48 hrs, septic arthrosis unlikely. WBAT, ROMAT. Dramatic improvement today. OK to discharge to outpatient care. Should followup with orthopedics within 2 weeks. If symptoms worsen, may call for acute appointment. Will monitor cultures. Subjective Chart reviewed Review of Systems All systems reviewed & are unremarkable except as noted in HPI & below. Physical Exam . Results & Data Results & Data Laboratory Results . Diagnostic Findings Microbiology 06/14/22 10:45 Gram Stain - Final Knee,Left 06/13/22 17:58 Aerobic Blood Culture - Preliminary Blood No growth in Aerobic bottle after 24 hours. Anaerobic Blood Culture - Preliminary No growth in Anaerobic bottle after 24 hours. 06/13/22 17:58 Aerobic Blood Culture - Preliminary Blood No growth in Aerobic bottle after 24 hours. Anaerobic Blood Culture - Preliminary No growth in Anaerobic bottle after 24 hours. PG Care Time/CCT Total # of Minutes Spent Total Time Spent with Patient: Total time spent is greater than 50% in coordination of care (as documented) at patient's floor/unit and/or counseling patient: Coding Level of Care Code 89347 Post Operative Follow-Up Diagnoses Effusion, left knee M25.462 Neutropenia D70.9
[2022-06-15 09:41] LABS: Albumin Globulin Ratio 0.8 (0.9-2); Albumin Level 2.6 gm/dl (3.4-5.0); BUN Creatinine Ratio 25.9 (10-20); Bilirubin,Total 0.4 mg/dl (0.2-1.0); C Reactive Protein 17.68 mg/dl (0-0.5); Calcium 8.3 mg/dl (8.5-10.1); Creatinine Clr Calc Pharmacy 100.2 ml/min; Est GFR (African American) 116.9 ml/min; Est GFR (Non-African American) 100.9 ml/min; Globulin 3.1 gm/dl (2.5-4.0); Phosphorus 2.9 mg/dl (2.5-4.9); Potassium 4.1 mmol/L (3.5-5.1); Total Protein 5.7 gm/dl (6.0-8.3)
--- NOTE | 2022-06-15 09:41 | Pharmacy Report ---
Pharmacy Vanc AUC Short Note - Date of Service June 15, 2022 - Assessment & Plan Assessment 61 year old F started on vancomycin and ceftriaxone for possible joint infection. Patient with hx of RA on methotrexate, gastric bypass surgery, anemia. Prelim blood cultures negative, knee culture pending. Plan Vancomycin * AUC/HASEEB is the preferred PK/PD target for vancomycin * AUC guided dosing is effective and associated with decreased risk of nephrotoxicity compared to traditional trough targets * Vancomycin level this AM ~15.9 mcg/ml - plan to continue vancomycin 1 gm iv q 8 hrs * This dosing is estimated to achieve target AUC/HASEEB of 400-600 mg/L.hr and may be associated with a 14% risk of nephrotoxicity * Plan to repeat level in next 2-3 days if continued Pharmacy will continue to follow and will adjust dose/frequency as necessary. Thank you.
[2022-06-15] MEDS: cefTRIAXone SODIUM 1,000 MG in DEXTROSE 5% 50 ML IV SCH (10:15)
[2022-06-15 10:17] LABS: Anisocytosis Present; Basophils # (auto) 0.01 K/uL (0-0.2); Basophils % (auto) 0.3 %; Echinocytes 1+; Immature Granulocytes # (auto) 0.01 K/uL (0.00-0.02); Immature Granulocytes % (auto) 0.3 %; Lymphocytes # (auto) 1.96 K/uL (1.2-3.4); Lymphocytes % (auto) 57.8 %; Monocytes # (auto) 0.39 K/uL (0.24-0.82); Monocytes % (auto) 11.5 %; Neutrophils # (auto) 1.02 K/uL (1.4-6.5); Neutrophils % (auto) 30.1 %; Poikilocytosis Present; Smudge Cells Present
[2022-06-15] MEDS: PANTOprazole 40 MG TAB PO SCH (10:19)
[2022-06-15] MEDS: SENNA 8.6 MG TAB PO SCH (10:20)
[2022-06-15] MEDS: CYANOCOBALAMIN 1000 MCG/ML VIAL IM SCH (10:20)
[2022-06-15] MEDS: ESCITALOPRAM OXALATE 20 MG TAB PO SCH (10:20)
--- NOTE | 2022-06-15 16:21 | Discharge Summary ---
Date of Service June 15, 2022 Admission HPI Per Admitting Provider Mary Calvillo is a 61yo female with history of Rheumatoid Arthritis on Enbrel and recently started on Methotrexate, history of Jorge-en-Y gastric bypass surgery and pernicious anemia. Patient was in her usual state of health until approximately 3 days ago when she developed pain and swelling in her left knee as well as pain in her left shoulder. She was able to go to work yesterday with a knee brace in place. Today, however, she had to leave early due to pain, stiffness and inability to bear weight on her left leg. She feels that her knee is popping. She denies fall, trauma, twisting or any different activity from usual. She did have 2 episodes of watery diarrhea today prior to arrival. Non-bloody/non-mucoid. Poor appetite and decreased oral intake over the last day. She denies fever but has been having some chills. Denies chest pain, palpitations, cough, SOB, abdominal pain, nausea, vomiting. She denies travel, sick contacts, tick or mosquito bites. In the ER patient tachycardic at 112. Temperature obtained after administration of Tylenol and Toradol - afebrile at 37.1. X-ray imaging of knee with no pathology. Bedside ultrasound performed by ER attending - no collection or effusion noted. ER Course: NSS x 2L then at 250mL/hr Tylenol 1gm IV Toradol 15mg IV Solumedrol 125mg IV Potassium chloride 20meq Magnesium sulfate x 1 gm Cefepime 2gm Daptomycin 375mg Morphine 2mg IV Principal Diagnosis Left knee and shoulder pain, effusion, electrolyte abnormalities Discharge Exam Constitutional WD/WN, vitals as above Eyes + anicteric sclerae Neck trachea midline, no thyromegaly Respiratory normal respiratory effort, lungs clear to auscultation Cardiovascular RRR, no murmur, no edema Chest (Breasts) Chest: normal inspection of chest Gastrointestinal (Abdomen) normal bowel sounds, soft, nontender, no hepatosplenomegaly Musculoskeletal Extremities: + extremities abnormal to inspection (With joint enlargement of bilateral wrists), no cyanosis and no clubbing Shoulder: + limited ROM (Left with improved ROM 0-100 abduction and flexion); shoulder normal to inspection, no effusion, no skin erythema and no joint line tenderness Knee: + limited ROM of knee (0 to 120 degrees of flexion on left,improved); no effusion, no skin erythema, no ecchymosis and no joint line tenderness Skin no rashes, warm and dry Neurologic moves all extremities and awake; no focal motor deficits Psychiatric A+Ox3, euthymic affect Lymphatic no lymphedema Discharge Data Allergies Allergy/AdvReac Type Severity Reaction Status Date / Time latex Allergy Intermediate REPORTS Verified 06/13/22 19:02 REACTION IS TO "LATEX TAPE ONLY" - "SKIN BUBBLES UP" hydromorphone [From Dilaudid] AdvReac Intermediate "CRAWLING Verified 06/13/22 19:02 SKIN" Consultations 06/13/22 19:22 ED Decision to Admit Stat 06/13/22 23:08 Consult Orthopedic Surgery Routine Ordered Studies 06/13/22 19:00 CT abd pelvis IV con only Stat 06/13/22 23:08 CT knee LT w con Routine Hospital Course (1) Left knee pain: 61yo female with history of RA on Enbrel injection as well as methotrexate (Per Rheumatology note from 05/01/22 - patient on MTX 15mg weekly and folic acid) presenting with 2-3 days of progressive swelling and pain in her left knee as well as acute pain in her left shoulder. Patient with chills at home as well as 2 episodes of diarrhea. Tachycardic on arrival. Labs are significant for elevation of ESR=50, CRP=9.19 as well as Procalcitonin of 2.6. She is leukopenic with WBC=2.46 with lymphopenia and neutropenia as well. Ddx to include: flare of RA, septic joint/infection vs crystal arthropathy. No obvious fluid collection noted by ER attending on bedside ultrasound. Patient has received Toradol, Solumedrol as well as antibiotics - Daptomycin and Cefepime on admission Pain has significantly improved with the above interventions and with joint arthrocentesis by orthopedics on 06/14 WBC count on joint fluid is just under 20,000 but this could be falsely low due to her leukopenia as per orthopedics There are no joint crystals and uric acid level is normal, CK just above normal Gram stain and culture are pending but prelim no growth, Lyme CPR on joint fluid pending She is immunosuppressed Lyme disease in the serum is negative but covered with ceftriaxone and also gave vancomycin CT knee with effusion and synovial thickening, no fractures Appreciate orthopedics consultation ESR 40-50, CRP up at 17, procalcitonin remains elevated at 2.2 but improved, remains neutropenic but improving No fevers here Was able to ambulate on her own and feeling much better in shoulder as well on day of idscharge Septic joint not likely as per my d/w Ortho Ok for dc to home but will cover woith doxycycline 100mg po bid x total 10 days in case of Lyme given multiple joint involvement. Could also be from RA but seems less likely f/u with Rheum after discharge If joint culture returns positive, should f/u with Ortho as outpt -continue to hold Methotrexate and Encrel for now until infection is ruled out and antibiotic course completed -Follow blood cultures-no growth to date Dc to home (2) Left shoulder pain: Pain with palpation of left subacromial bursa region with limited mobility. No trauma. X-ray shoulder with no bony abnormality With evidence of impingement on examination This is acute but now improved Appreciate orthopedics consultation (3) Diarrhea: Patient reports two episodes of watery diarrhea prior to arrival. CT of the abdomen obtained in the ER suggestive of possible gastroenteritis as well as presence of moderate fecal stasis -Senna qAM -Colace, Dulcolax PRN No further diarrhea after admission Moved bowels normally (4) Electrolyte abnormality: Patient with several electrolyte abnormalities to include hypokalemia with K=2.8, hypomagnesemia with Mg=1.4 and hypophosphatemia with PO4=1.2. Calcium is slightly low at 8.3 but appropriately corrects for Albumin of 3. Has been given 1gm of Mg as well as 20mEq of KCl and KPhos 9 mmol in ER thus far. ?Diarrheal losses - patient only with 2 episodes of diarrhea prior to arrival. ?Poor intake. Electrolytes all replaced and now resolved (5) Leukopenia: Patient with leukopenia - WBC=2.46 with neutropenia and lymphopenia. Possibly secondary to methotrexate use. ?infectious source. Lyme is NEGATIVE as is Covid-19 testing. Anaplasmosis and babesia have been sent - Anaplasmosis and Babesia smears negative -Holding methotrexate as above -B12 level quite low at 112-replaced follow CBC as outpt (6) Pernicious anemia: History of pernicious and Fe-def anemia. With a h/o gastric bypass H/H stable B12 level quite low at 112 Give B12 1000 mcg IM daily x2 doses and will continue as outpt also gets IV Venofer as outpt (7) Depression: Chronic. Stable -Continue Escitalopram (8) Hypothyroidism: Chronic. TSH here normal -Continue Synthroid 75mcg po daily (9) Rheumatoid arthritis, seropositive: Patient with Rheumatoid arthritis. She is presently on Enbrel injections q weekly which she administers on . She was recently started on Methotrexate on 05/01/22 by Rheumatology. -Hold MTX and Enbrel for now due to possible infection (10) PUD (peptic ulcer disease): Chronic. Stable on medication -Continue Protonix 40mg po daily Plan Disposition-dc to home Total Time Total Time Spent Total Time Spent (In Minutes): 35 min Discharge Plan Discharge Items Patient Disposition: Home - Self-Care Reason For Visit: KNEE PAIN, SHOULDER PAIN, ELECTROLYTE DERANGEMENTS Discharge Diagnosis: Left knee and shoulder pain, possible Lyme disease Electrolyte abnormalities Activity: Resume your previous activity Non-emergency contact: Primary Care Provider and Specialist Call non-emergency contact if: you have any medication questions, your symptoms worsen, your pain is not controlled, your pain is worsening, you have a fever and your temperature is above 101 Follow-up/Referrals: Maren Snowden CRNP [Primary Care Provider] - (Follow up within 1 week) Doc Duval MD [Surgeon] - (Follow up as needed for knee and shoulder pain ) Zeeshan Hurley MD [Physician] - (Follow up within 2 weeks.) Diet: Regular Addtl Attending Provider Instructions: You were admitted with a painful left knee and shoulder as well as some chills and low white blood cell count, dehydration. You had fluid drained off your knee and were placed on antibiotics in case of joint infection. So far, the fluid from the knee is not growing any bacteria. There is a chance this could be from Lyme disease, but could also just be from inflammation from your rheumatoid arthritis. Please continue on the oral doxycycline as an an antibiotic for Lyme disease just in case for 8 more days. You were much improved and stable for discharge to home. Your PCP can follow up on the final result of the Lyme test in the joint fluid. You should HOLD off on taking your methotrexate and Enbrel until you are done taking the doxycycline. Your B12 levels were quite low here and you were given 2 doses of B12 shots. Please continue follow up with your PCP for this. Pending Studies at Discharge: Yes (Joint fluid culture,Lyme test) Stand-Alone Forms: My [facility], Smoking Cessation Medications and DC Order Prescriptions: New doxycycline hyclate 100 mg tablet 100 mg PO BID Qty: 16 0RF Continued valacyclovir 500 mg tablet 500 mg PO BID PRN (Reason: flare up) Qty: 30 1RF ondansetron 4 mg tablet,disintegrating 4 mg PO Q8H PRN (Reason: nausea and vomiting) Qty: 20 3RF levothyroxine [Euthyrox] 75 mcg tablet 75 mcg PO QAM Qty: 90 3RF pantoprazole 40 mg tablet,delayed release (DR/EC) 40 mg PO DAILY Qty: 90 3RF phenazopyridine [Pyridium] 200 mg tablet 200 mg PO TID PRN (Reason: Pain) cyanocobalamin (vitamin B-12) 1,000 mcg/mL Kit 100 mcg IM MONTHLY hydrocodone-acetaminophen 7.5-325 mg tablet 1 tab PO DIRECTED Rx Instructions: filled on 05/24/20 Enbrel SureClick 50 mg/mL (1 mL) pen injector 0 mg SUBCUT WK Rx Instructions: TAKES ON THURSDAYS. sumatriptan succinate 50 mg tablet See Rx Instructions PO .COMPLEX PRN (Reason: Migraine Headache) Rx Instructions: take 1 tab at onset of headache; if no relief may repeat 1 tab after at least 2 hrs; max = 4 tabs/24 hr PO Venofer 100 mg iron/5 mL solution 300 mg IV .COMPLEX PRN (Reason: LOW IRON LEVELS) Rx Instructions: 300 mg in 250 cc , administer over 90 min, IV NEEDED. escitalopram oxalate 20 mg tablet 20 mg PO DAILY Discharge Orders: Discharge Order (Routine); Ordered 06/15/22 Ordered By: Romy Knutson Admission Data Admit Date/Time: 06/13/22 20:22 Attending Provider: Romy Knutson Admit Provider: Monisha Davila Primary Care Provider: Maren Snowden. Other Providers: Monisha Davila ; Zeeshan Ricketts Coding Level of Care Code D/C DAY MANAGEMENT >30 MINS Diagnoses Left knee pain M25.562 Left shoulder pain M25.512 Diarrhea R19.7 Electrolyte abnormality E87.8 Leukopenia D72.819 Pernicious anemia D51.0 Depression F32.9 Hypothyroidism E03.9 Rheumatoid arthritis, seropositive M05.9 PUD (peptic ulcer disease) K27.9
[2022-06-17 13:16] LABS: Babesia microti DNA Not Detected (Not Detected)
[2022-06-19 15:48] LABS: Lyme DNA PCR CSF or Synovial Not Detected (Not Detected); Lyme DNA Source SYNOVIAL FLUID
== END 2022-06-15 19:06 | disposition home or self-care (01) | DRG 565 ==
LOC: EDSEX → ED 17:30 → SUATTDRO 20:22 → EDINP 20:22 → 3W 23:30